=== PATIENT | female | born 1930 | race African-American/Black ===

== ENCOUNTER 2016-10-10 02:48 | Emergency (ER) | payer OTHER, BC ==
--- NOTE | 2016-10-10 02:51 | PDOC ---
History of Present Illness - General Chief Complaint: Nasal Bleeding Stated Complaint: NOSE BLEED X 2 WEEKS 1/2 HOUR TONIGHT Time Seen by Provider: 10/10/16 02:50 - History of Present Illness Initial Comments: 10/10/16 03:32 This 86-year-old woman with a history of hypertension and diverticulosis with bleed presents with epistaxis for the last half hour. Patient has had intermittent nosebleeds for the last 2 weeks. She was seen by ENT on October 02 and had left nostril cauterized. Since then, she has had several brief episodes of epistaxis that have resolved spontaneously. Tonight, patient was awakened about one half hour prior to presentation with brisk bleeding out of her left nostril. She denies trauma/nose blowing or sneezing prior to recurrent nosebleed. Patient has a history of epistaxis that occurred when she was in high school but none since then. Patient takes 81 mg of aspirin daily but is on no other anticoagulation. She had episode of diverticular bleed requiring transfusion several years ago without recurrence. Patient has been taking her antihypertensive medications as prescribed Past History - Past Medical History Allergies/Adverse Reactions: Allergies Allergy/AdvReac Type Severity Reaction Status Date / Time No Known Allergies Allergy Verified 10/10/16 02:53 Home Medications: Ambulatory Orders Hydrochlorothiazide [Hctz -] 25 mg PO DAILY 12/01/13 Nifedipine [Procardia Xl] 90 mg PO DAILY 12/01/13 Aspirin [ASA -] 81 mg PO DAILY 10/10/16 Anemia: No Asthma: No Cancer: No Cardiac Disorders: No CVA: No COPD: No CHF: No Dementia: No Diabetes: No GI Disorders: No Disorders: No HTN: No Hypercholesterolemia: No Liver Disease: No Seizures: No Thyroid Disease: No - Surgical History Abdominal Surgery: No Appendectomy: No Cardiac Surgery: No Cholecystectomy: No Lung Surgery: No Neurologic Surgery: No Orthopedic Surgery: No - Psycho/Social/Smoking Cessation Hx Anxiety: No Suicidal Ideation: No Smoking History: Never smoked Have you smoked in the past 12 months: No Hx Alcohol Use: No Drug/Substance Use Hx: No Substance Use Type: None Hx Substance Use Treatment: No Review of Systems - Review of Systems Able to Perform ROS?: Yes Comments:: 12 point review of systems is negative except for what is noted in the history of present illness *Physical Exam - Physical Exam Comments: GENERAL: Elderly female, alert and oriented 3 in mild distress secondary to left sided epistaxis, holding nose with facial tissue HEAD: Normal with no signs of trauma. EYES: PERRLA, EOMI, sclera anicteric, conjunctiva clear. ENT: Left nostril brisk bleeding; no source of epistaxis identifiable ; right nostrilminimal ooze without evidence of brik bleeding Ears normal, oropharynx clear without exudates, small amount of clots seen in oropharynx. Moist mucous membranes. NECK: Normal range of motion, supple without lymphadenopathy, JVD, or masses. LUNGS: Breath sounds equal, clear to auscultation bilaterally. No wheezes, and no crackles. HEART:Regular rate and rhythm, normal S1 and S2 without murmur, rub or gallop. ABDOMEN:.normal bowel sounds No guarding,tenderness or rebound.No masses No distention. EXTREMITIES: Normal range of motion, no edema. No clubbing or cyanosis. No erythema, or tenderness. NEUROLOGICAL: Cranial nerves II through XII grossly intact. Normal speech. No focal neurological deficits. MUSCULOSKELETAL: Back non-tender to palpation, no CVA tenderness SKIN: Warm, Dry, normal turgor, no rashes or lesions noted. Medical Decision Making - Medical Decision Making 86-year-old woman who is had 2 week history of epistaxis with ENT cauterization of left nostril approximately 1 week ago. Patient presents with spontaneous recurrence of left nostril epistaxis. 4.5 cm anterior "rapid rhino" inflatable nasal pac immersed in sterile water in order to activate lubrication. Device inserted without difficulty into the left nostril and inflated with approximately 5 mL of air. Bleeding from nostril controlled. Device secured to left cheek using tape Patient observed for an additional 20 minutes. There is a minimal amount of oozing from the right nostril but no further bleeding from left nostril. Patient was discharged, comfortable, in no distress. She and her family advised to call ENT group office tomorrow to arrange follow-up within the next 48 hours. Meanwhile, the patient should keep her head elevated as much as possible and avoid blowing her nose as well as application of heat to the area around her nose until seen by the ENT. She should return to the ER if she has any recurrent nosebleed *DC/Admit/Observation/Transfer Diagnosis at time of Disposition: Epistaxis - Discharge Dispostion Disposition: HOME Condition at time of disposition: Stable - Referrals Referrals: Warren Ron [Primary Care Provider] - Jacky Barrios MD [Staff Physician] - - Patient Instructions Printed Discharge Instructions: Nosebleed Additional Instructions: keep head elevated until seen by ENT doctor keep nasal packing in place avoid blowing nose/avoid heat application to face call ENT office in AM and arrange for followup within 2 days return to ER if nosebleed recurs followup with your general doctor within the next 10 days
[2016-10-10 03:01] VITALS: BP 134/78; PULSE 100; TEMP 98.6; BMI 39.3
== END 2016-10-10 03:32 | disposition home or self-care (01) ==
LOC: FER 02:48
PROC: 2Y41X5Z Packing of Nasal Region using Packing Material (ICD-10-PCS; principal; 2016-10-10)
DX: R04.0 Epistaxis (principal); I10 Essential (primary) hypertension; K57.90 Diverticulosis of intestine, part unspecified, without perforation or abscess without bleeding; Z79.82 Long term (current) use of aspirin
CPT/HCPCS: 30901-25; 36415; 80053; 82550; 84484; 85025; 85610; 93005; 93010; 99281-25; 99284-25

== ENCOUNTER 2019-08-05 17:29 | Inpatient (IN) | payer OTHER, BC ==
[2019-08-05 18:59] LABS: BASO % 3.9 % (0-2.0); EOS % 0.7 % (0-4.5); HEMATOCRIT 37.9 % (32.4-45.2); HEMOGLOBIN 12.9 GM/dl (10.7-15.3); MCH 29.9 pg (25.7-33.7); MCHC 33.9 g/dl (32.0-36.0); MEAN CELL VOLUME 88.3 fl (80-96); MONO % 8.2 % (3.8-10.2); NEUT % 67.2 % (42.8-82.8); PLATELET COUNT 429 K/MM3 (134-434); RBC 4.29 M/mm3 (3.60-5.2); RDW 13.4 % (11.6-15.6); WHITE BLOOD COUNT 8.6 K/mm3 (4.0-10.8)
[2019-08-05 19:11] LABS: INR 1.16 (0.82-1.09); PROTHROMBIN TIME (PATIENT) 12.9 SEC (10.2-13.0)
--- NOTE | 2019-08-05 19:57 | PDOC ---
Documentation entered by Gabby Kuo SCRIBE, acting as scribe for Sly Ramos MD. Sly Ramos MD: This documentation has been prepared by the romanibe, Gabby Kuo SCRIBE, under my direction and personally reviewed by me in its entirety. I confirm that the documentation accurately reflects all work, treatment, procedures, and medical decision making performed by me. History of Present Illness - General Chief Complaint: Rectal Bleed Stated Complaint: H/O DIVERTICULOSIS WITH 2 EPISODES OF BLEEDING History Source: Patient Exam Limitations: No Limitations - History of Present Illness Initial Comments: 08/05/19 19:47 Assessment and plan: This is an 89-year-old female with history of bright red blood per rectum secondary to diverticulosis in the past x3. Patient comes in complaining of 2 episodes prior to arrival and one episode in the ED of bright red blood per rectum with a sensation that she had to defecate. Patient denies any bright red blood per rectum between defecations. Patient on my exam did have bright red blood per rectum with rectal exam however the rest of her exam was unremarkable. Patient will be admitted with Dr. Richards consult as she is a patient of Dr. Richards. Dr. Richards was called and case discussed with him. Dr. Richards will see patient in the morning Work-up initiated including CBC, comp, type and screen, PT, PTT, chest x-ray and EKG. Past History - Past Medical History Allergies/Adverse Reactions: Allergies Allergy/AdvReac Type Severity Reaction Status Date / Time No Known Allergies Allergy Verified 08/05/19 17:37 Home Medications: Ambulatory Orders Kranthi/D3/Mag11/Zinc/Java Web Architect/Tyrese/Bor [Caltrate 600+D Plus Tablet] 1 tab PO DAILY 08/05 Gluc Lopez/Chondro Lopez A/Vit C/Mn [Glucosamine-Chondroitin Caps] 1 each PO DAILY Hydrochlorothiazide [Hctz -] 25 mg PO DAILY 08/05/19 Multivit with Calcium,Iron,Min [One Daily Women's] 1 tab PO DAILY 08/05/19 Nifedipine [Nifedipine ER] 60 mg PO HS 08/05/19 Anemia: No Asthma: No Cancer: No Cardiac Disorders: No CVA: No COPD: No CHF: No Dementia: No Diabetes: No GI Disorders: Yes (DIVERTICULOSIS) Disorders: No HTN: Yes Hypercholesterolemia: No Liver Disease: No Seizures: No Thyroid Disease: No Other medical history: OSTEOARTHRITIS,CYSTOCELE, LEFT BREAT NODULE - Surgical History Abdominal Surgery: No Appendectomy: No Cardiac Surgery: No Cholecystectomy: No Lung Surgery: No Neurologic Surgery: No Orthopedic Surgery: No - Psycho Social/Smoking Cessation Hx Smoking History: Never smoked Have you smoked in the past 12 months: No Information on smoking cessation initiated: No Hx Alcohol Use: No Drug/Substance Use Hx: No Substance Use Type: None Hx Substance Use Treatment: No *Physical Exam - Vital Signs Last Vital Signs Temp Pulse Resp BP Pulse Ox 98.6 F 81 16 133/80 97 08/05/19 17:31 08/05/19 19:27 08/05/19 19:27 08/05/19 19:27 08/05/19 19:27 ED Treatment Course - LABORATORY CBC & Chemistry Diagram: 08/05/19 18:40 08/05/19 18:55 - ADDITIONAL ORDERS Additional order review: Laboratory Results 08/05/19 08/05/19 18:40 18:40 PT with INR 12.9 INR 1.16 PTT (Actin FS) 26.6 08/05/19 18:40 RBC 4.29 MCV 88.3 MCHC 33.9 RDW 13.4 MPV 8.0 Neutrophils % 67.2 Lymphocytes % 20.0 Monocytes % 8.2 Eosinophils % 0.7 Basophils % 3.9 H - RADIOLOGY Radiology Studies Ordered: Category Date Time Status CHEST X-RAY PORTABLE* [RAD] Stat Radiology 08/05/19 19:31 Ordered Discharge - Discharge Information Problems reviewed: Yes Clinical Impression/Diagnosis: BRBPR (bright red blood per rectum) Condition: Stable - Admission Yes - Follow up/Referral Referrals: Beatriz Friedman [Primary Care Provider] - - Patient Discharge Instructions - Post Discharge Activity
--- NOTE | 2019-08-05 20:04 | PDOC ---
*Physical Exam - Vital Signs Last Vital Signs Temp Pulse Resp BP Pulse Ox 98.6 F 81 16 133/80 97 08/05/19 17:31 08/05/19 19:27 08/05/19 19:27 08/05/19 19:27 08/05/19 19:27 ED Treatment Course - LABORATORY CBC & Chemistry Diagram: 08/05/19 18:40 08/05/19 18:55 - ADDITIONAL ORDERS Additional order review: Laboratory Results 08/05/19 08/05/19 18:40 18:40 PT with INR 12.9 INR 1.16 PTT (Actin FS) 26.6 08/05/19 18:40 RBC 4.29 MCV 88.3 MCHC 33.9 RDW 13.4 MPV 8.0 Neutrophils % 67.2 Lymphocytes % 20.0 Monocytes % 8.2 Eosinophils % 0.7 Basophils % 3.9 H - RADIOLOGY Radiology Studies Ordered: Category Date Time Status CHEST X-RAY PORTABLE* [RAD] Stat Radiology 08/05/19 19:31 Ordered Discharge - Discharge Information Clinical Impression/Diagnosis: BRBPR (bright red blood per rectum) Condition: Stable - Follow up/Referral Referrals: Beatriz Friedman [Primary Care Provider] - - Patient Discharge Instructions - Post Discharge Activity
[2019-08-05 20:20] LABS: ALBUMIN 4.1 g/dl (3.4-5.0); BILIRUBIN,TOTAL 0.3 mg/dL (0.2-1); BLOOD UREA NITROGEN 17.6 mg/dL (7-18); CALCIUM 9.3 mg/dL (8.5-10.1); CREATININE 0.8 mg/dL (0.55-1.3); POTASSIUM 4.1 mmol/L (3.5-5.1); TOT PROT 8.3 g/dl (6.4-8.2)
[2019-08-05 22:00] VITALS: BMI 34.6
[2019-08-05] MEDS: DEXTROSE 5%-NORMAL SALINE 1,000 ML IV SCH (22:47)
--- NOTE | 2019-08-06 04:12 | HP ---
CHIEF COMPLAINT: Rectal bleeding GI: Dr. Richards HISTORY OF PRESENT ILLNESS: This is an 89 year-old female with a PMH significant for HTN, diverticuosis, and diverticular bleed. Patient presented to the ED for evaluation of two episodes of BRBPR prior to arrival. Patient was at home, felt the need to defecate, and passed blood with clots and some bits of stool. About 40 minutes later she had a similar second episode. She came to the ED, had a third episode , and when admitted to the floor last night had a fourth episode. Patient denies abdominal pain of any kind. She denies fever, sweats, chills, or recent illness. ER course was notable for: (1) p100 (2) (3) Recent Travel: No PAST MEDICAL HISTORY: Hypertension Diverticulosis Diverticular bleeding episodes Epistaxis PAST SURGICAL HISTORY: None reported Social History: lives with and two daughters, independent ADLs Smoking: never Alcohol: no Drugs: no Allergies No Known Allergies Allergy (Verified 08/05/19 17:37) HOME MEDICATIONS: Home Medications Medication Instructions Recorded Kranthi/D3/Mag11/Zinc/Information Services Consultant/Tyrese/Bor 1 tab PO DAILY 08/05/19 [Caltrate 600+D Plus Tablet] Gluc Lopez/Chondro Lopez A/Vit C/Mn 1 each PO DAILY 08/05/19 [Glucosamine-Chondroitin Caps] Hydrochlorothiazide [Hctz -] 25 mg PO DAILY 08/05/19 Multivit with Calcium,Iron,Min 1 tab PO DAILY 08/05/19 [One Daily Women's] Nifedipine [Nifedipine ER] 60 mg PO HS 08/05/19 REVIEW OF SYSTEMS CONSTITUTIONAL: Absent: fever, chills, diaphoresis, generalized weakness, malaise, loss of appetite, weight change HEENT: Absent: rhinorrhea, nasal congestion, throat pain, throat swelling, difficulty swallowing, mouth swelling, ear pain, eye pain, visual changes CARDIOVASCULAR: Absent: chest pain, syncope, palpitations, irregular heart rate, lightheadedness , peripheral edema RESPIRATORY: Absent: cough, shortness of breath, dyspnea with exertion, orthopnea, wheezing, stridor, hemoptysis GASTROINTESTINAL: +bleeding from rectum with clots Absent: abdominal pain, abdominal distension, nausea, vomiting, diarrhea, constipation, melena, hematochezia GENITOURINARY: Absent: dysuria, frequency, urgency, hesitancy, hematuria, flank pain, genital pain MUSCULOSKELETAL: Absent: myalgia, arthralgia, joint swelling, back pain, neck pain SKIN: Absent: rash, itching, pallor HEMATOLOGIC/IMMUNOLOGIC: Absent: easy bleeding, easy bruising, lymphadenopathy, frequent infections ENDOCRINE: Absent: unexplained weight gain, unexplained weight loss, heat intolerance, cold intolerance NEUROLOGIC: Absent: headache, focal weakness or paresthesias, dizziness, unsteady gait, seizure, mental status changes, bladder or bowel incontinence PSYCHIATRIC: Absent: anxiety, depression, suicidal or homicidal ideation, hallucinations. PHYSICAL EXAMINATION Vital Signs - 24 hr 08/05/19 08/05/19 08/05/19 17:31 19:27 21:46 Temperature 98.6 F 98.3 F Pulse Rate 100 H 95 H Pulse Rate [ 81 Left] Respiratory 16 16 18 Rate Blood Pressure 139/80 130/88 Blood Pressure 133/80 [Left] O2 Sat by Pulse 97 97 100 Oximetry (%) 08/06/19 01:49 Temperature 97.8 F Pulse Rate 81 Pulse Rate [ Left] Respiratory 18 Rate Blood Pressure 128/69 Blood Pressure [Left] O2 Sat by Pulse 99 Oximetry (%) GENERAL: Awake, alert, and fully oriented, in no acute distress. HEAD: Normal with no signs of trauma. EYES: Pupils equal, round and reactive to light, extraocular movements intact, sclera anicteric, conjunctiva clear. EARS, NOSE, THROAT: Ears normal, nares patent, oropharynx clear without exudates. Dry mucous membranes. LUNGS: Breath sounds equal, clear to auscultation bilaterally. No wheezes, and no crackles. No accessory muscle use. HEART: Regular rate and rhythm, S1 and S2 ABDOMEN: Soft, nontender, not distended, normoactive bowel sounds, no guarding, no rebound UPPER EXTREMITIES: 2+ pulses, warm, well-perfused. No cyanosis. No clubbing. No peripheral edema. LOWER EXTREMITIES: 2+ pulses, warm, well-perfused. No calf tenderness. 1+ bilateral lower extremity edema NEUROLOGICAL: Cranial nerves II-XII intact. Normal speech. Laboratory Results - last 24 hr 08/05/19 08/05/19 08/05/19 18:40 18:40 18:40 WBC 8.6 RBC 4.29 Hgb 12.9 Hct 37.9 D MCV 88.3 MCH 29.9 MCHC 33.9 RDW 13.4 Plt Count 429 MPV 8.0 Absolute Neuts (auto) 5.8 Neutrophils % 67.2 Lymphocytes % 20.0 Monocytes % 8.2 Eosinophils % 0.7 Basophils % 3.9 H PT with INR 12.9 INR 1.16 PTT (Actin FS) 26.6 Sodium Potassium Chloride Carbon Dioxide Anion Gap BUN Creatinine Est GFR (CKD-EPI)AfAm Est GFR (CKD-EPI)NonAf Random Glucose Calcium Total Bilirubin AST ALT Alkaline Phosphatase Total Protein Albumin Blood Type Antibody Screen 08/05/19 08/05/19 18:40 18:55 WBC RBC Hgb Hct MCV MCH MCHC RDW Plt Count MPV Absolute Neuts (auto) Neutrophils % Lymphocytes % Monocytes % Eosinophils % Basophils % PT with INR INR PTT (Actin FS) Sodium 137 Potassium 4.1 Chloride 103 Carbon Dioxide 26 Anion Gap 8 BUN 17.6 Creatinine 0.8 Est GFR (CKD-EPI)AfAm 76.83 Est GFR (CKD-EPI)NonAf 66.29 Random Glucose 98 Calcium 9.3 Total Bilirubin 0.3 AST 25 ALT 26 Alkaline Phosphatase 83 Total Protein 8.3 H Albumin 4.1 Blood Type B POSITIVE Antibody Screen Negative ASSESSMENT/PLAN: This is an 89 year-old female with a PMH significant for HTN, diverticuosis, and diverticular bleed. Admitted for rectal bleeding. Lower GI bleeding --4-5 episodes of bleeding per rectum with clots and bits of stool --no fever, no leukocytosis, no pain --seen by GI, OK to start clears, defer colonoscopy unless further bleeding Hypertension --hold nifedipine for now due to bleeding issue FEN Fluids: D5NS@75mL/hr Electrolytes: replete as indicated Nutrition: clears DVT prophylaxis: SCDs, oob, ambulation Physical therapy Dispo: continues to require inpatient care. Full code. Visit type - Emergency Visit Emergency Visit: Yes ED Registration Date: 08/05/19 Care time: The patient presented to the Emergency Department on the above date and was hospitalized for further evaluation of their emergent condition. - New Patient This patient is new to me today: Yes Date on this admission: 08/06/19 - Critical Care Critical Care patient: No
[2019-08-06 07:13] LABS: BASO % 0.2 % (0-2.0); EOS % 1.2 % (0-4.5); HEMATOCRIT 30.8 % (32.4-45.2); HEMOGLOBIN 10.5 GM/dl (10.7-15.3); LYMPH % 23.5 % (8-40); MCH 30.3 pg (25.7-33.7); MCHC 34.1 g/dl (32.0-36.0); MEAN PLT VOLUME 7.6 fl (7.5-11.1); MONO % 8.6 % (3.8-10.2); NEUT % 66.5 % (42.8-82.8); PLATELET COUNT 317 K/MM3 (134-434); RBC 3.46 M/mm3 (3.60-5.2); RDW 13.5 % (11.6-15.6); WHITE BLOOD COUNT 7.7 K/mm3 (4.0-10.8)
--- NOTE | 2019-08-06 09:36 | PN ---
Progress Note (short form) - Note Progress Note: Patient seen and labs reviewed along with my "old" office records; consult dictated. Patient is an 89 yo female admitted with acute LGI bleed (BRB/clots RI) without pain or fever. Has hx of prior LGI bleeding from diverticulosis (sigmoid/left-sided). Last colonoscopy approx 5 years ago. Admitted with LGI bleed and Hct drop to 30% Previously with regular BMs and good appetite/stable weight. Not on ASA/a/c. Currently without abdominal c/o and passed only a small amount of dark blood this am (?from earlier bleed?) Suspect diverticular bleed; appears to have stopped/slowed. Would monitor vital signs, CBC and begin on clear liquid diet (nothing red or purple) In view of age and prior history, would defer colonoscopy unless further bleeding. Will follow
[2019-08-06] MEDS ORDERED: PANTOPRAZOLE SODIUM 40 MG VIAL IVPUSH SCH (10:00)
[2019-08-06 10:06] LABS: ALBUMIN 3.3 g/dl (3.4-5.0); BILIRUBIN,TOTAL 0.6 mg/dL (0.2-1); BLOOD UREA NITROGEN 15.4 mg/dL (7-18); CREATININE 0.7 mg/dL (0.55-1.3); POTASSIUM 3.5 mmol/L (3.5-5.1); TOT PROT 6.6 g/dl (6.4-8.2)
--- NOTE | 2019-08-06 11:23 | EKG ---
Test Reason : Blood Pressure : / mmHG Vent. Rate : 081 BPM Atrial Rate : 081 BPM P-R Int : 172 ms QRS Dur : 112 ms QT Int : 392 ms P-R-T Axes : 056 -67 029 degrees QTc Int : 455 ms SINUS RHYTHM WITH OCCASIONAL PREMATURE VENTRICULAR COMPLEXES POSSIBLE LEFT ATRIAL ENLARGEMENT RIGHT BUNDLE BRANCH BLOCK LEFT ANTERIOR FASCICULAR BLOCK BIFASCICULAR BLOCK ABNORMAL ECG WHEN COMPARED WITH ECG OF 10-OCT-2016 23:55, PREMATURE VENTRICULAR COMPLEXES ARE NOW PRESENT Confirmed by Jayjay Bates MD ([id number]) on 08/06/2019 11:22:57 AM Referred By: DR SERRANO Confirmed By:Jayjay Bates MD
[2019-08-06] MEDS ORDERED: SODIUM CHLORIDE 1,000 ML IV STA ×2 (15:23)
--- NOTE | 2019-08-06 15:55 | RAPID ---
Physical Examination Vital Signs: Summoned to patient's room by RN. Patient sitting on toilet, in no apparent distress. Passing dark blood per rectum into toilet. Had few moments before filled diaper with dark red blood with large amount of clot. Vitals BP 166/70 p97 SpO2 97% room air T 97.8 RR 18 Physical exam General/Neuro: A&Ox3, in no acute distress. Skin: warm, dry CV: S1, S2 Abd: soft, not tender Assessment/Plan Active lower GI bleeding --two IV access --NS x 2L bolus now --type and screen done --cbc, cmp, Mg, lactic acid stat --ordered 2U PRBC --CTA w and w/o IV contrast arterial phase then venous phase; discussed with radiology --discussed with Dr. Orellana, accepted to ICU --Dr. Ortiz on surgery consult --Dr. Richards on GI consult, he will continue to follow the patient in ICU Critical Care Total Critical Care Time (in minutes): 60 Critical Care Statement: The care of this patient involved high complexity decision making to prevent further life threatening deterioration of the patient 's condition and/or to evaluate & treat vital organ system(s) failure or risk of failure.
[2019-08-06 16:06] LABS: BASO % 0.3 % (0-2.0); EOS % 0.7 % (0-4.5); HEMATOCRIT 30.4 % (32.4-45.2); HEMOGLOBIN 10.3 GM/dl (10.7-15.3); LYMPH % 22.7 % (8-40); MCH 30.2 pg (25.7-33.7); MEAN CELL VOLUME 88.9 fl (80-96); MEAN PLT VOLUME 7.6 fl (7.5-11.1); MONO % 8.9 % (3.8-10.2); NEUT % 67.4 % (42.8-82.8); PLATELET COUNT 320 K/MM3 (134-434); RBC 3.42 M/mm3 (3.60-5.2); RDW 13.4 % (11.6-15.6); WHITE BLOOD COUNT 8.5 K/mm3 (4.0-10.8)
[2019-08-06 16:10] LABS: ALBUMIN 3.5 g/dl (3.4-5.0); BILIRUBIN,TOTAL 0.8 mg/dl (0.2-1); CALCIUM 8.2 mg/dl (8.5-10); CREATININE 0.6 mg/dl (0.55-1.3); MAGNESIUM 1.6 mg/dL (1.8-2.4)
[2019-08-06] MEDS ORDERED: POTASSIUM CHLORIDE TABS 20 MEQ TABLET.ER (FP) PO STA (16:33)
[2019-08-06] MEDS ORDERED: MAGNESIUM SULF 50% (8.12 MEQ/2 ML-1 GM VIAL) IVPB ONE (16:34)
--- NOTE | 2019-08-06 17:39 | CONS ---
DATE OF CONSULTATION: 08/06/2019 Asked to evaluate this 89-year-old female admitted with lower GI bleeding. The patient is an 89-year-old female with a history of diverticular disease in the past including bleeding. The patient was last seen by me many years ago in the office. She had a colonoscopy under my care 2012 with some diverticulosis noted in the left and sigmoid portions of the colon and evidence of bleeding from a diverticulum. She also had a small benign polyp which was removed at the time. The patient has a history of hypertension as well and family history notable for her brother having had colon cancer at age 57 and several 2nd-degree relatives also having had colon cancer. The patient had been having regular bowel movements daily up until this episode. She has not seen any blood in the stool nor any recent change in her bowel habits. Her appetite and weight have remained stable. The patient had been on aspirin at the time of her prior bleed but is currently not on any blood thinners. PHYSICAL EXAMINATION: General: She is a well-developed, overweight female with pink conjunctiva, soft abdomen, normoactive bowel sounds, and no tenderness. There is gross blood detected in the emergency room. Her blood counts on admission included a hemoglobin of 12.9, hematocrit of 37.9 with normal red cell indices. Most recent hemoglobin is 10.5 with hematocrit of 30.8. Her INR was 1.16 and her chemistries are unremarkable with a BUN of 17 and a creatinine of 0.8. Patient most likely with acute lower GI bleed due to a diverticular source. At the present time she appears stable with her blood count likely dropping due to a combination of the recent bleed and hydration. She has no symptoms at the present time, and in view of her age wishes to defer a colonoscopy if possible. I have discussed with patient the options if she re-bleeds including colonoscopy or CT angiogram, but at the present time will monitor closely. If remains stable can start on clear liquids with followup as needed. GREG DUNLAP M.D. [id number]
--- NOTE | 2019-08-06 21:41 | CONSULT ---
Consultation: REQUESTING PROVIDER: Shy Martinez NP CONSULT REQUEST: We have been asked to medically evaluate this patient for GI bleed. HISTORY OF PRESENT ILLNESS: 89F w/ pmhx of HTN, OA, diverticulosis with bleeding in the past, osteopenia presents in the ICU for GI bleed. Pt was originally admitted at [place] after having 2 episodes of dark red stool. Upon admission, patient remained hemodynamically stable. Per EMR, rapid response was called earlier today as pt was found to have an episode of dark red stool with large clot in her diaper. Due to concern of ongoing GI bleed, pt was transferred from [facility] to [facility] for ICU monitoring. Of note, pt has had a history of diverticular bleeding in the past, last known episode prior to recent events was in 2013. Last colonoscopy was also done in 2013 per patient. States she follows with Dr. Richards (GI) as an outpatient. Denies AC or NSAID use. Upon arrival to the unit, pt was found to be in no acute distress. She denied any more bloody bowel movements since her last episode prior to the transfer. During the episode, she denied headaches, dizziness, vision changes, chest pain , shortness of breath, nausea/vomiting. REVIEW OF SYSTEMS: CONSTITUTIONAL: Absent: fever, chills, diaphoresis, generalized weakness, malaise, loss of appetite, weight change HEENT: Absent: rhinorrhea, nasal congestion, throat pain, throat swelling, difficulty swallowing, mouth swelling, ear pain, eye pain, visual changes CARDIOVASCULAR: Absent: chest pain, syncope, palpitations, irregular heart rate, lightheadedness , peripheral edema RESPIRATORY: Absent: cough, shortness of breath, dyspnea with exertion, orthopnea, wheezing, stridor, hemoptysis GASTROINTESTINAL: mild abdominal bloating, dark bloody stool Absent: abdominal pain, abdominal distension, nausea, vomiting, diarrhea, constipation, melena, hematochezia GENITOURINARY: Absent: dysuria, frequency, urgency, hesitancy, hematuria, flank pain, genital pain MUSCULOSKELETAL: Absent: myalgia, arthralgia, joint swelling, back pain, neck pain SKIN: Absent: rash, itching, pallor HEMATOLOGIC/IMMUNOLOGIC: Absent: easy bleeding, easy bruising, lymphadenopathy, frequent infections ENDOCRINE: Absent: unexplained weight gain, unexplained weight loss, heat intolerance, cold intolerance NEUROLOGIC: Absent: headache, focal weakness or paresthesias, dizziness, unsteady gait, seizure, mental status changes, bladder or bowel incontinence PHYSICAL EXAMINATION Vital Signs - 24 hr 08/05/19 08/06/19 08/06/19 21:46 01:49 05:00 Temperature 98.3 F 97.8 F 98.2 F Pulse Rate 95 H 81 80 Respiratory 18 18 18 Rate Blood Pressure 130/88 128/69 142/77 O2 Sat by Pulse 100 99 Oximetry (%) 08/06/19 08/06/19 08/06/19 08:02 09:45 13:00 Temperature 98.2 F 97.8 F Pulse Rate 108 H 100 H Respiratory 19 18 Rate Blood Pressure 131/68 130/80 O2 Sat by Pulse 96 97 96 Oximetry (%) 08/06/19 08/06/19 08/06/19 15:30 16:33 18:00 Temperature 97.8 F 97.8 F 97.8 F Pulse Rate 97 H 101 H 100 H Respiratory 18 18 18 Rate Blood Pressure 133/70 128/67 130/68 O2 Sat by Pulse Oximetry (%) 08/06/19 18:37 Temperature Pulse Rate Respiratory 18 Rate Blood Pressure O2 Sat by Pulse Oximetry (%) GENERAL: AAOx3. Pleasant, well-appearing elderly female. NAD. HEENT: AT/NC. EOMI. MMM. Facial symmetry noted. NECK: Normal range of motion, supple without lymphadenopathy, JVD, or masses. LUNGS: CTA B/L. No wheezes or rales noted. Symmetric chest rise. HEART: RRR. Normal S1, S2. +3/5 systolic murmur LUSB. ABDOMEN: Obese. Soft, NT/ND. Normoactive bowel sounds. No rebound tenderness or guarding. No masses noted. No visible stool noted in diaper. MUSCULOSKELETAL: Normal range of motion at all joints. Moves all extremities. EXTREMITIES: No peripheral edema noted. 2+ dorsalis pedis and radial pulses. NEUROLOGICAL: Cranial nerves II-XII intact. Normal speech. PSYCHIATRIC: Cooperative. Good eye contact. Appropriate mood and affect. SKIN: Warm, dry, normal turgor, no rashes or lesions noted. CBCD WBC 8.5 K/mm3 (4.0-10.8) 08/06/19 15:40 RBC 3.42 M/mm3 (3.60-5.2) L 08/06/19 15:40 Hgb 10.3 GM/dl (10.7-15.3) L 08/06/19 15:40 Hct 30.4 % (32.4-45.2) L 08/06/19 15:40 MCV 88.9 fl (80-96) 08/06/19 15:40 MCHC 34.0 g/dl (32.0-36.0) 08/06/19 15:40 RDW 13.4 % (11.6-15.6) 08/06/19 15:40 Plt Count 320 K/MM3 (134-434) 08/06/19 15:40 MPV 7.6 fl (7.5-11.1) 08/06/19 15:40 CMP Sodium 135 mmol/L (136-145) L 08/06/19 15:40 Potassium 3.0 mmol/L (3.5-5.1) L 08/06/19 15:40 Chloride 104 mmol/L (98-107) 08/06/19 15:40 Carbon Dioxide 22 mmol/L (21-32) 08/06/19 15:40 Anion Gap 9 MMOL/L (8-16) 08/06/19 15:40 BUN 14.0 mg/dl (7-18) 08/06/19 15:40 Creatinine 0.6 mg/dl (0.55-1.3) 08/06/19 15:40 Calcium 8.2 mg/dl (8.5-10) L 08/06/19 15:40 Total Bilirubin 0.8 mg/dl (0.2-1) 08/06/19 15:40 AST 24 U/L (15-37) 08/06/19 15:40 ALT 15 U/L (13-61) 08/06/19 15:40 Alkaline Phosphatase 48 U/L (45-117) 08/06/19 15:40 Total Protein 6.0 g/dl (6.4-8.2) L 08/06/19 15:40 Albumin 3.5 g/dl (3.4-5.0) 08/06/19 15:40 Active Medications Chlorhexidine Gluconate (Hibiclens For Decolonization -) 1 applic TP HS [facility] Dextrose/Sodium Chloride (D5-Ns -) 1,000 mls @ 75 mls/hr IV ASDIR [facility] Last Admin: 08/05/19 22:47 Dose: 75 mls/hr Mupirocin (Bactroban Ointment (For Decolonization) -) 1 applic NS BID [facility] Stop: 08/11/19 21:59 Pantoprazole Sodium (Protonix Iv) 40 mg IVPUSH DAILY [facility] Last Admin: 08/06/19 10:00 Dose: 40 mg ASSESSMENT/PLAN: 89F w/ pmhx of HTN, OA, diverticulosis with bleeding in the past, osteopenia presents in the ICU for GI bleed. Neuro -AAOx3. Mentating well. Stable with no acute issues. GI Acute Diverticular Bleed -Stable. Cont to monitor for BM. No other symptoms. -Hgb stable 10.5 --> 10.3. Recheck CBC in AM -CTAP done; pending final read -GI consulted (Dr. Richards) -Surg consulted (Dr. Ortiz) -NPO -Maintain Hgb >7, transfuse PRN -Protonix 40 IVP -IVf CV Hx of HTN -Hemodynamically stable. Hold anti-hypertensives for now. Nephro Hypokalemia Hypomagnesemia -K+ 3.0 today; K-Dur 60 mEq PO given -Mg 1.6; Mag Sulf 2gm IVPB given -repletes lytes PRN and recheck BMP in AM Prophylaxis DVT: SCDs GI: Protonix 40 IVP FEN -IVf -recheck lytes in AM (K+, Mg) -NPO Dispo: We will continue to follow the patient. Thank you for this consultative opportunity. Visit type - Emergency Visit Emergency Visit: Yes ED Registration Date: 08/05/19 Care time: The patient presented to the Emergency Department on the above date and was hospitalized for further evaluation of their emergent condition. - New Patient This patient is new to me today: Yes Date on this admission: 08/06/19 - Critical Care Critical Care patient: Yes Total Critical Care Time (in minutes): 36 Critical Care Statement: The care of this patient involved high complexity decision making to prevent further life threatening deterioration of the patient 's condition and/or to evaluate & treat vital organ system(s) failure or risk of failure. ATTENDING PHYSICIAN STATEMENT I saw and evaluated the patient. I reviewed the resident's note and discussed the case with the resident. I agree with the resident's findings and plan as documented. SUBJECTIVE: OBJECTIVE: ASSESSMENT AND PLAN:
[2019-08-06] MEDS ORDERED: CHLORHEXIDINE GLUCONATE 4% CLEANSER FOR DECOLONIZATION TP SCH (22:00)
[2019-08-06] MEDS: MUPIROCIN 2% TOPICAL OINTMENT FOR DECOLONIZATION NS SCH (22:08)
[2019-08-06] MEDS: DEXTROSE 5%-NORMAL SALINE 1,000 ML IV SCH (22:08)
[2019-08-07 06:59] LABS: PHOSPHOROUS 3.3 mg/dL (2.5-4.9)
[2019-08-07 07:42] LABS: INR 1.12 (0.83-1.09); PROTHROMBIN TIME (PATIENT) 13.2 SEC (9.7-13.0)
[2019-08-07 07:46] LABS: HEMATOCRIT 26.3 % (32.4-45.2); MCH 30.1 pg (25.7-33.7); MEAN CELL VOLUME 88.5 fl (80-96); MEAN PLT VOLUME 7.8 fl (7.5-11.1); PLATELET COUNT 266 K/MM3 (134-434); RBC 2.98 M/mm3 (3.60-5.2); RDW 14.3 % (11.6-15.6); WHITE BLOOD COUNT 5.9 K/mm3 (4.0-10.0)
--- NOTE | 2019-08-07 08:28 | PN ---
Progress Note (short form) - Note Progress Note: Patient with further LGI bleeding last pm; transferred to [facility]-ICU for monitoring. Had CTA- results pending Hct 26% VSS No further gross bleeding overnight and patient denies abdominal pain or cramps. Abdomen soft +BS nontender no mass Discussed with ICU team; suggest - close monitoring of CBC (may need PRBC txn if further drop in Hct) if further bleeding, may need IR - embolization and surgical evaluation if no further bleeding, will prep/arrange for colonoscopy tomorrow (also with + FH colon cancer - last colonoscopy 6 years ago) to begin on clear liquid diet and follow await reading of CTA
--- NOTE | 2019-08-07 08:54 | PN ---
Progress Note, Physician Chief Complaint: No further rectal bleeding. Awaiting colonscopy. History of Present Illness: This is an 89 year-old female with a PMH significant for HTN, diverticuosis, and diverticular bleed. Transfered from [facility] for further managament of rectal bleeding. - Current Medication List Current Medications: Active Medications Chlorhexidine Gluconate (Hibiclens For Decolonization -) 1 applic TP HS [facility] Last Admin: 08/06/19 22:08 Dose: 1 applic Dextrose/Sodium Chloride (D5-Ns -) 1,000 mls @ 75 mls/hr IV ASDIR [facility] Mupirocin (Bactroban Ointment (For Decolonization) -) 1 applic NS BID [facility] Stop: 08/11/19 21:59 Last Admin: 08/06/19 22:08 Dose: 1 applic Pantoprazole Sodium (Protonix Iv) 40 mg IVPUSH DAILY [facility] Polyethylene Glycol/Electrolytes (Nulytely) 4,000 ml PO ONCE ONE Stop: 08/07/19 15:01 - Objective Vital Signs: Vital Signs Temperature 98.1 F 08/07/19 08:00 Pulse Rate 95 H 08/07/19 08:00 Respiratory Rate 16 08/07/19 08:00 Blood Pressure 153/79 08/07/19 08:00 O2 Sat by Pulse Oximetry (%) 100 08/06/19 21:00 Constitutional: Yes: Well Nourished, No Distress, Calm Eyes: Yes: WNL, Conjunctiva Clear HENT: Yes: WNL, Atraumatic, Normocephalic Neck: Yes: WNL, Supple, Trachea Midline Cardiovascular: Yes: WNL, Regular Rate and Rhythm Respiratory: Yes: WNL, Regular, CTA Bilaterally Gastrointestinal: Yes: WNL, Normal Bowel Sounds, Rectal Bleeding (no episodes today) ...Rectal Exam: Yes: Guaiac Positive Genitourinary: Yes: WNL Breast(s): Yes: WNL Musculoskeletal: Yes: WNL Extremities: Yes: WNL Edema: Yes Edema: LLE: 1+, RLE: 1+ Peripheral Pulses WNL: Yes Peripheral Pulses: Left Radial: 2+, Right Radial: 2+, Left Doralis Pedis: 2+, Right Dorsalis Pedis: 2+, Left Femoral: 2+, Right Femoral: 2+ Integumentary: Yes: WNL Neurological: Yes: WNL, Alert, Oriented ...Motor Strength: WNL Psychiatric: Yes: WNL Labs: CBC, BMP 08/07/19 05:15 INR, PTT INR 1.12 (0.83-1.09) H 08/07/19 05:15 - ....Imaging Cat Scan: Report Reviewed (CTA: several divertula along descending and sigmoid colom. No active bleeding) Problem List - Problems (1) HTN (hypertension) Assessment/Plan: nortensive hold nifidipine Code(s): I10 - ESSENTIAL (PRIMARY) HYPERTENSION (2) Diverticulitis Assessment/Plan: 3 diverticular bleeds in the past no active bleeding today seen by surgery and GI colonscopy pending for tomorrow Code(s): K57.92 - DVTRCLI OF INTEST, PART UNSP, W/O PERF OR ABSCESS W/O BLEED (3) Diverticulitis of intestine with bleeding Assessment/Plan: GI planning for colonoscopy tomorrow with bowel prep today Code(s): K57.93 - DVTRCLI OF INTEST, PART UNSP, W/O PERF OR ABSCESS W BLEEDING (4) Prophylactic measure Assessment/Plan: FEN Fluids: IVF @ 75cc/he. adequate PO intake Electrolytes: monitor & replete as needed Nutrition: clear diet DVT scds no chemical AC given bleeidng Dispo Maintain as inpatient-ok to transfer to [facility] surg bed full code discharge planning Code(s): Z29.9 - ENCOUNTER FOR PROPHYLACTIC MEASURES, UNSPECIFIED (5) BRBPR (bright red blood per rectum) Assessment/Plan: no further episodes today Code(s): K62.5 - HEMORRHAGE OF ANUS AND RECTUM Visit type - Emergency Visit Emergency Visit: Yes ED Registration Date: 08/05/19 Care time: The patient presented to the Emergency Department on the above date and was hospitalized for further evaluation of their emergent condition. - New Patient This patient is new to me today: Yes Date on this admission: 08/07/19 - Critical Care Critical Care patient: No - Discharge Referral Referred to [facility] No
--- NOTE | 2019-08-07 08:57 | PN ---
Progress Note (short form) - Note Progress Note: pt without any further bleeding. Vital Signs Period Temp Pulse Resp BP Sys/Rolon Pulse Ox Last 24 Hr 97.8 F-98.4 F 86-108 15-22 113-153/63-80 96-100 GEN: A&0x3, NAD ABD: soft, non-distended, non-tender CBC, BMP 08/07/19 05:15 Laboratory Tests 08/06/19 15:40 WBC 8.5 Hgb 10.3 L Hct 30.4 L Plt Count 320 CTA: no evidence of extravasation of contrast. diverticula of descending and sigmoid colon. A/p: 89 yo female with GI bleed. NPO, IVF Monitor H&H, transfuse as per ICU team GI planning for colonoscopy tomorrow with bowel prep today D/w. Dr Ortiz
[2019-08-07 09:24] LABS: BLOOD UREA NITROGEN 9.6 mg/dL (7-18); CREATININE 0.6 mg/dL (0.55-1.3); MAGNESIUM 2.3 mg/dL (1.8-2.4); POTASSIUM 3.9 mmol/L (3.5-5.1)
[2019-08-07] MEDS: DEXTROSE 5%-NORMAL SALINE 1,000 ML IV SCH ×2 (09:47→17:15)
[2019-08-07] MEDS: MUPIROCIN 2% TOPICAL OINTMENT FOR DECOLONIZATION NS SCH (09:58)
[2019-08-07] MEDS: PANTOPRAZOLE SODIUM 40 MG VIAL IVPUSH SCH (09:58)
--- NOTE | 2019-08-07 12:08 | PN ---
Teaching Attending Note Name of Resident: Gretchen Sanchez ATTENDING PHYSICIAN STATEMENT I saw and evaluated the patient. I reviewed the resident's note and discussed the case with the resident. I agree with the resident's findings and plan as documented. SUBJECTIVE: Patient seen and examined in the ICU. Awaeke and alert. Denies CP or SOB. No occult bleeding overnight. Intake & Output 08/04/19 08/05/19 08/06/19 08/07/19 23:59 23:59 23:59 23:59 Intake Total 3000 940 Output Total 400 Balance 2600 940 Weight 208 lb 2 oz Last Vital Signs Temp Pulse Resp BP Pulse Ox 97.5 F L 95 H 12 152/83 98 08/07/19 10:00 08/07/19 10:00 08/07/19 10:00 08/07/19 10:00 08/07/19 08:50 Active Medications Chlorhexidine Gluconate (Hibiclens For Decolonization -) 1 applic TP HS [facility] Last Admin: 08/06/19 22:08 Dose: 1 applic Dextrose/Sodium Chloride (D5-Ns -) 1,000 mls @ 75 mls/hr IV ASDIR [facility] Last Admin: 08/07/19 09:47 Dose: 75 mls/hr Mupirocin (Bactroban Ointment (For Decolonization) -) 1 applic NS BID [facility] Stop: 08/11/19 21:59 Last Admin: 08/07/19 09:58 Dose: 1 applic Pantoprazole Sodium (Protonix Iv) 40 mg IVPUSH DAILY [facility] Last Admin: 08/07/19 09:58 Dose: 40 mg Polyethylene Glycol/Electrolytes (Golytely Solution -) 4,000 ml PO ONCE ONE Stop: 08/07/19 15:01 GENERAL: AAOx3. NAD. HEENT: AT/NC. EOMI. MMM. Facial symmetry noted. NECK: Normal range of motion, supple without lymphadenopathy, JVD, or masses. LUNGS: CTA B/L. No wheezes or rales noted. Symmetric chest rise. HEART: RRR. Normal S1, S2. +3/5 systolic murmur LUSB. ABDOMEN: Obese. Soft, NT/ND. Normoactive bowel sounds. No rebound tenderness or guarding. No masses noted. No visible stool noted in diaper. MUSCULOSKELETAL: Normal range of motion at all joints. Moves all extremities. EXTREMITIES: No peripheral edema noted. 2+ dorsalis pedis and radial pulses. NEUROLOGICAL: Non-focal PSYCHIATRIC: Cooperative. Good eye contact. Appropriate mood and affect. SKIN: Warm, dry, normal turgor, no rashes or lesions noted. Laboratory Results - last 24 hr 08/05/19 08/06/19 08/06/19 18:40 15:40 15:40 WBC 8.5 RBC 3.42 L Hgb 10.3 L Hct 30.4 L MCV 88.9 MCH 30.2 MCHC 34.0 RDW 13.4 Plt Count 320 MPV 7.6 Absolute Neuts (auto) 5.7 Neutrophils % 67.4 Lymphocytes % 22.7 Monocytes % 8.9 Eosinophils % 0.7 Basophils % 0.3 PT with INR INR PTT (Actin FS) Sodium 135 L Potassium 3.0 L Chloride 104 Carbon Dioxide 22 Anion Gap 9 BUN 14.0 Creatinine 0.6 Est GFR (CKD-EPI)AfAm 94.99 Est GFR (CKD-EPI)NonAf 81.95 Random Glucose 124 H Lactic Acid Calcium 8.2 L Phosphorus Magnesium 1.6 L Total Bilirubin 0.8 AST 24 ALT 15 Alkaline Phosphatase 48 Total Protein 6.0 L Albumin 3.5 Blood Type B POSITIVE Antibody Screen Negative Crossmatch See Detail 08/06/19 08/06/19 08/07/19 15:40 15:40 05:15 WBC 5.9 RBC 2.98 L Hgb 9.0 L Hct 26.3 L MCV 88.5 MCH 30.1 MCHC 34.0 RDW 14.3 Plt Count 266 MPV 7.8 Absolute Neuts (auto) Neutrophils % Lymphocytes % Monocytes % Eosinophils % Basophils % PT with INR INR PTT (Actin FS) 25.5 Sodium Potassium Chloride Carbon Dioxide Anion Gap BUN Creatinine Est GFR (CKD-EPI)AfAm Est GFR (CKD-EPI)NonAf Random Glucose Lactic Acid 2.1 H Calcium Phosphorus Magnesium Total Bilirubin AST ALT Alkaline Phosphatase Total Protein Albumin Blood Type Antibody Screen Crossmatch 08/07/19 08/07/19 05:15 05:15 WBC RBC Hgb Hct MCV MCH MCHC RDW Plt Count MPV Absolute Neuts (auto) Neutrophils % Lymphocytes % Monocytes % Eosinophils % Basophils % PT with INR 13.20 H INR 1.12 H PTT (Actin FS) Sodium 144 Potassium 3.9 Chloride 114 H Carbon Dioxide 25 Anion Gap 5 L BUN 9.6 Creatinine 0.6 Est GFR (CKD-EPI)AfAm 94.99 Est GFR (CKD-EPI)NonAf 81.95 Random Glucose 100 Lactic Acid Calcium 8.0 L Phosphorus 3.3 Magnesium 2.3 Total Bilirubin AST ALT Alkaline Phosphatase Total Protein Albumin Blood Type Antibody Screen Crossmatch ASSESSMENT/PLAN: Suspected Diverticular bleed HTN OA History of diverticular bleeding in the past x 3 Normal transfusion thresholds O2 as needed Follow CBC Mechanical VTE prophylaxis PPI noted Can monitor on the floor Dr Ferrari
--- NOTE | 2019-08-07 13:02 | PN ---
Physical Exam: SUBJECTIVE: Patient seen and examined. No acute event overnight. pt denied any bloody bowel movement since the one on initial presentation to ICU. OBJECTIVE: Vital Signs Period Temp Pulse Resp BP Sys/Rolon Pulse Ox Last 24 Hr 97.5 F-98.4 F 86-104 12-24 113-153/61-83 98-100 GENERAL: The patient is awake, alert, and fully oriented, in no acute distress. HEAD: Normal with no signs of trauma. EYES: sclera anicteric, conjunctiva clear. No ptosis. ENT: oropharynx clear without exudates, moist mucous membranes. NECK: Trachea midline, full range of motion, supple. LUNGS: Breath sounds equal, clear to auscultation bilaterally, no wheezes, no crackles, no accessory muscle use. HEART: Regular rate and rhythm, S1, S2 without murmur, rub or gallop. ABDOMEN: Soft, nontender, obese, normoactive bowel sounds, no guarding, no rebound, no hepatosplenomegaly, no masses. EXTREMITIES: 2+ pulses, warm, well-perfused, no edema. PSYCH: Normal mood, normal affect. SKIN: Warm, dry, normal turgor, no rashes or lesions noted Laboratory Results - last 24 hr 08/05/19 08/06/19 08/06/19 18:40 15:40 15:40 WBC 8.5 RBC 3.42 L Hgb 10.3 L Hct 30.4 L MCV 88.9 MCH 30.2 MCHC 34.0 RDW 13.4 Plt Count 320 MPV 7.6 Absolute Neuts (auto) 5.7 Neutrophils % 67.4 Lymphocytes % 22.7 Monocytes % 8.9 Eosinophils % 0.7 Basophils % 0.3 PT with INR INR PTT (Actin FS) Sodium 135 L Potassium 3.0 L Chloride 104 Carbon Dioxide 22 Anion Gap 9 BUN 14.0 Creatinine 0.6 Est GFR (CKD-EPI)AfAm 94.99 Est GFR (CKD-EPI)NonAf 81.95 Random Glucose 124 H Lactic Acid Calcium 8.2 L Phosphorus Magnesium 1.6 L Total Bilirubin 0.8 AST 24 ALT 15 Alkaline Phosphatase 48 Total Protein 6.0 L Albumin 3.5 Blood Type B POSITIVE Antibody Screen Negative Crossmatch See Detail 08/06/19 08/06/19 08/07/19 15:40 15:40 05:15 WBC 5.9 RBC 2.98 L Hgb 9.0 L Hct 26.3 L MCV 88.5 MCH 30.1 MCHC 34.0 RDW 14.3 Plt Count 266 MPV 7.8 Absolute Neuts (auto) Neutrophils % Lymphocytes % Monocytes % Eosinophils % Basophils % PT with INR INR PTT (Actin FS) 25.5 Sodium Potassium Chloride Carbon Dioxide Anion Gap BUN Creatinine Est GFR (CKD-EPI)AfAm Est GFR (CKD-EPI)NonAf Random Glucose Lactic Acid 2.1 H Calcium Phosphorus Magnesium Total Bilirubin AST ALT Alkaline Phosphatase Total Protein Albumin Blood Type Antibody Screen Crossmatch 08/07/19 08/07/19 05:15 05:15 WBC RBC Hgb Hct MCV MCH MCHC RDW Plt Count MPV Absolute Neuts (auto) Neutrophils % Lymphocytes % Monocytes % Eosinophils % Basophils % PT with INR 13.20 H INR 1.12 H PTT (Actin FS) Sodium 144 Potassium 3.9 Chloride 114 H Carbon Dioxide 25 Anion Gap 5 L BUN 9.6 Creatinine 0.6 Est GFR (CKD-EPI)AfAm 94.99 Est GFR (CKD-EPI)NonAf 81.95 Random Glucose 100 Lactic Acid Calcium 8.0 L Phosphorus 3.3 Magnesium 2.3 Total Bilirubin AST ALT Alkaline Phosphatase Total Protein Albumin Blood Type Antibody Screen Crossmatch Active Medications Generic Name Dose Route Start Last Admin Trade Name Freq PRN Reason Stop Dose Admin Chlorhexidine Gluconate 1 applic 08/06/19 22:00 08/06/19 22:08 Hibiclens For Decolonization - TP 1 applic HS [facility] Administration Dextrose/Sodium Chloride 1,000 mls @ 75 mls/hr 08/07/19 02:50 08/07/19 09:47 D5-Ns - IV 75 mls/hr ASDIR [facility] Administration Mupirocin 1 applic 08/06/19 22:00 08/07/19 09:58 Bactroban Ointment (For Decolonization) - NS 08/11/19 21:59 1 applic BID [facility] Administration Pantoprazole Sodium 40 mg 08/07/19 10:00 08/07/19 09:58 Protonix Iv IVPUSH 40 mg DAILY [facility] Administration Polyethylene Glycol/Electrolytes 4,000 ml 08/07/19 15:00 Golytely Solution - PO 08/07/19 15:01 ONCE ONE ASSESSMENT/PLAN: 89F w/ pmhx of HTN, OA, diverticulosis with bleeding in the past, osteopenia presents in the ICU for GI bleed. Neuro -AAOx3. Mentating well. Stable with no acute issues. GI Acute Diverticular Bleed. No bloody bowel movement this morning - H/H dropped to 9/26.3 - Cont to monitor for BM. No other symptoms. -CTAP :No definite contrast extravasation is visualized to identify a specific bleeding site. Several diverticula along the length of the descending and sigmoid segments of the colon demonstrates slightly increased intraluminal density possibly representing blood. Mild dilatation of the length of the main pancreatic duct is seen. No gross mass lesion is identified on CT. MRI/MRCP evaluation may be considered versus 2 month follow-up CT. The urinary bladder volume at the time of examination is approximately 600 mL. There is minimal to mild bilateral hydroureteronephrosis possibly secondary to urinary bladder distention. Possible cholelithiasis versus focal gallbladder wall calcification -GI (Dr. Richards) : close monitoring of CBC (may need PRBC txn if further drop in Hct) if further bleeding, may need IR - embolization and surgical evaluation if no further bleeding, will prep/arrange for colonoscopy tomorrow (also with + FH colon cancer - last colonoscopy 6 years ago) to begin on clear liquid diet and follow -Surg consulted (Dr. Ortiz) : NPO, IVF, colonoscopy t/m if no bleeding and stable -NPO -Maintain Hgb >7, transfuse PRN -Protonix 40 IVP -D5NS @75 -currently receiving bowel prep CV Hx of HTN -Hemodynamically stable. Hold anti-hypertensives for now. Nephro hypokalemic and hypomagnesemia. -s/p repletion of lytes -currently k 3.9, mag 2.3 Prophylaxis DVT: SCDs GI: Protonix 40 IVP FEN -IVf -recheck lytes in AM (K+, Mg) -NPO Dispo: pending transfer to floors Visit type - Emergency Visit Emergency Visit: Yes ED Registration Date: 08/05/19 Care time: The patient presented to the Emergency Department on the above date and was hospitalized for further evaluation of their emergent condition. - New Patient This patient is new to me today: No - Critical Care Critical Care patient: Yes Total Critical Care Time (in minutes): 36 Critical Care Statement: The care of this patient involved high complexity decision making to prevent further life threatening deterioration of the patient 's condition and/or to evaluate & treat vital organ system(s) failure or risk of failure. ATTENDING PHYSICIAN STATEMENT I saw and evaluated the patient. I reviewed the resident's note and discussed the case with the resident. I agree with the resident's findings and plan as documented. SUBJECTIVE: OBJECTIVE: ASSESSMENT AND PLAN:
[2019-08-07] MEDS ORDERED: PEG 3350/NA SULF BICARB CL/KCL 4000 ML SOLN.RECON PO ONE ×2 (15:00→17:15)
[2019-08-08 09:14] LABS: ALBUMIN 3.3 g/dl (3.4-5.0); BILIRUBIN,TOTAL 0.8 mg/dL (0.2-1); BLOOD UREA NITROGEN 4.4 mg/dL (7-18); CALCIUM 7.9 mg/dL (8.5-10.1); CREATININE 0.6 mg/dL (0.55-1.3); TOT PROT 6.6 g/dl (6.4-8.2)
--- NOTE | 2019-08-08 09:25 | PN ---
Progress Note (short form) - Note Progress Note: 89 yo F h/o GI bleed, pt seen and examined at bedside. Pt is currently having no more bloody stool. Pt is scheduled for colonoscopy today. Pt denies any abd pain, fever, chills, n/v. Last Vital Signs Temp Pulse Resp BP Pulse Ox 98.0 F 101 H 18 150/75 98 08/08/19 07:35 08/08/19 07:35 08/08/19 07:35 08/08/19 07:35 08/08/19 08:50 CBC, BMP 08/08/19 07:38 08/08/19 07:38 PE: Gen: a&O x 3 Resp: breathing comfortably Abd; soft, nontender, nondistended, Problem List - Problems (1) BRBPR (bright red blood per rectum) Assessment/Plan: Plan -no acute surgical intervention at this time. -follow up colonoscopy -trend H/H Code(s): K62.5 - HEMORRHAGE OF ANUS AND RECTUM
[2019-08-08] MEDS: PANTOPRAZOLE SODIUM 40 MG VIAL IVPUSH SCH (09:43)
[2019-08-08] MEDS: DEXTROSE 5%-NORMAL SALINE 1,000 ML IV SCH ×2 (09:43→19:45)
[2019-08-08 10:04] LABS: BASO % 0.4 % (0-2.0); EOS % 1.5 % (0-4.5); HEMATOCRIT 26.5 % (32.4-45.2); LYMPH % 16.8 % (8-40); MCH 29.9 pg (25.7-33.7); MEAN CELL VOLUME 87.9 fl (80-96); MEAN PLT VOLUME 7.4 fl (7.5-11.1); MONO % 9.1 % (3.8-10.2); NEUT % 72.2 % (42.8-82.8); PLATELET COUNT 296 K/MM3 (134-434); RBC 3.01 M/mm3 (3.60-5.2); RDW 14.5 % (11.6-15.6); WHITE BLOOD COUNT 7.2 K/mm3 (4.0-10.0)
--- NOTE | 2019-08-08 13:42 | PN ---
Physical Exam: 89 F h/o HTN, diverticuosis, and diverticular bleed. Transferred from [facility] for further management of rectal bleeding. This morning patient had another episode of BRBPR and in stool. Denies CP/SOB/dizziness/abdominal pain. Will be sent for colonoscopy today. PE VSS GA standing up next to bed, AAOx3, speaking in full sentences HEENT NC/AT, EOMI, neck supple, MMM Chest CTAB, no crackles or wheezing CVS S1, S2+, RRR Abd Soft, NT, ND, BS+ Ext No LE edema, no calf tenderness, R hand and R forearm with swelling, cool to touch, ?infiltration of IV line (see incident report) Vital Signs - 24 hr 08/07/19 08/07/19 08/07/19 14:00 21:00 21:54 Temperature 98.4 F 98.7 F Pulse Rate 96 H 102 H Respiratory 19 20 20 Rate Blood Pressure 135/86 147/90 O2 Sat by Pulse 98 Oximetry (%) 08/08/19 08/08/19 08/08/19 02:00 05:50 07:35 Temperature 98.1 F 98.8 F 98.0 F Pulse Rate 97 H 92 H 101 H Respiratory 18 18 18 Rate Blood Pressure 129/62 123/59 L 150/75 O2 Sat by Pulse Oximetry (%) 08/08/19 08/08/19 08:50 11:00 Temperature 98.2 F Pulse Rate 102 H Respiratory 14 Rate Blood Pressure 126/66 O2 Sat by Pulse 98 Oximetry (%) Laboratory Results - last 24 hr 08/05/19 08/08/19 08/08/19 18:40 07:38 07:38 WBC Cancelled Corrected WBC (auto) Cancelled RBC Cancelled Hgb Cancelled Hct Cancelled MCV Cancelled MCH Cancelled MCHC Cancelled RDW Cancelled Plt Count Cancelled MPV Cancelled Absolute Neuts (auto) Cancelled Neutrophils % Cancelled Lymphocytes % Cancelled Monocytes % Cancelled Eosinophils % Cancelled Basophils % Cancelled Nucleated RBC % Cancelled Platelet Estimate Cancelled Platelet Comment Cancelled Sodium 141 Potassium 4.0 Chloride 112 H Carbon Dioxide 20 L Anion Gap 10 BUN 4.4 L Creatinine 0.6 Est GFR (CKD-EPI)AfAm 94.99 Est GFR (CKD-EPI)NonAf 81.95 Random Glucose 86 Calcium 7.9 L Phosphorus 3.0 Magnesium 2.0 Total Bilirubin 0.8 AST 35 ALT 20 Alkaline Phosphatase 60 Total Protein 6.6 Albumin 3.3 L Blood Type B POSITIVE Antibody Screen Negative Crossmatch See Detail 08/08/19 09:30 WBC 7.2 Corrected WBC (auto) RBC 3.01 L Hgb 9.0 L Hct 26.5 L MCV 87.9 MCH 29.9 MCHC 34.0 RDW 14.5 Plt Count 296 MPV 7.4 L Absolute Neuts (auto) 5.2 Neutrophils % 72.2 Lymphocytes % 16.8 Monocytes % 9.1 Eosinophils % 1.5 D Basophils % 0.4 Nucleated RBC % 0 Platelet Estimate Platelet Comment Sodium Potassium Chloride Carbon Dioxide Anion Gap BUN Creatinine Est GFR (CKD-EPI)AfAm Est GFR (CKD-EPI)NonAf Random Glucose Calcium Phosphorus Magnesium Total Bilirubin AST ALT Alkaline Phosphatase Total Protein Albumin Blood Type Antibody Screen Crossmatch Home Medications Medication Instructions Recorded Kranthi/D3/Mag11/Zinc/[employer]enger Agent/Tyrese/Bor 1 tab PO DAILY 08/05/19 [Caltrate 600+D Plus Tablet] Gluc Lopez/Chondro Lopez A/Vit C/Mn 1 each PO DAILY 08/05/19 [Glucosamine-Chondroitin Caps] Hydrochlorothiazide [Hctz -] 25 mg PO DAILY 08/05/19 Multivit with Calcium,Iron,Min 1 tab PO DAILY 08/05/19 [One Daily Women's] Nifedipine [Nifedipine ER] 60 mg PO HS 08/05/19 Current Medications Generic Name Dose Route Start Last Admin Trade Name Freq PRN Reason Stop Dose Admin Dextrose/Sodium Chloride 1,000 mls @ 75 mls/hr 08/07/19 02:50 08/08/19 09:43 D5-Ns - IV 75 mls/hr ASDIR FELICE Administration Pantoprazole Sodium 40 mg 08/07/19 10:00 08/08/19 09:43 Protonix Iv IVPUSH 40 mg DAILY FELICE Administration A/P: 89 F h/o diverticulosis, HTN, admitted for hematochezia, BRBPR and in stool, awaiting colonoscopy today, current HD stable. BRBPR likely 2/2 diverticular bleed, H/H stable from yesterday awaiting colonoscopy today diagnostic and possibly therapeutic Transfuse PRN, IVF, NPO, cont. PPI, Tylenol PRn for pain, avoid AC, SCD/OLEG for now HTN cont. BP meds DVT ppx: OLEG/SCD FEN: IVF/daily chem/cbc/NPO Med-Surg Visit type - Emergency Visit Emergency Visit: Yes ED Registration Date: 08/05/19 Care time: The patient presented to the Emergency Department on the above date and was hospitalized for further evaluation of their emergent condition. - New Patient This patient is new to me today: Yes Date on this admission: 08/08/19 - Critical Care Critical Care patient: No - Discharge Referral Referred to [facility] Med P.C.: No
--- NOTE | 2019-08-08 13:55 | PN ---
Progress Note (short form) - Note Progress Note: Patient with only a small amount of rectal bleeding today and was brought to Endoscopy for colonoscopy; in GI suite she passed large amount of BRB and clots with some associated weakness. Appears to be have rebleeding from ?diverticular? source. Discussed with Dr Bonilla Ortiz (surgery) and arrangements made for patient to go emergently to angiography with Dr. Garcia. Agree with PRBC transfusions and fluid resuscitation Defer colonoscopy at this time.
--- NOTE | 2019-08-08 19:33 | CONSULT ---
Consultation: REQUESTING PROVIDER: CONSULT REQUEST: We have been asked to medically evaluate this patient for post embolization management. HISTORY OF PRESENT ILLNESS: 89 yo F PMH HTN, arthritis, diverticulosis, and diverticular bleed, transferred from [facility] for further management of rectal bleeding. This morning, the patient experienced further BRBPR and ultimately underwent a colonscopy. During the colonoscopy, a source of bleeding was found and embolized. Patient complaints only of b/l knee pain. Reports that she normally takes acetaminophen and places lidocaine patches on her knees at home, but has been unable to do so today. Specifically denies CP/SOB/dizziness/abdominal pain. REVIEW OF SYSTEMS: CONSTITUTIONAL: Absent: fever, chills, diaphoresis, generalized weakness, malaise, loss of appetite, weight change HEENT: Absent: rhinorrhea, nasal congestion, throat pain, throat swelling, difficulty swallowing, mouth swelling, ear pain, eye pain, visual changes CARDIOVASCULAR: Absent: chest pain, syncope, palpitations, irregular heart rate, lightheadedness , peripheral edema RESPIRATORY: Absent: cough, shortness of breath, dyspnea with exertion, orthopnea, wheezing, stridor, hemoptysis GASTROINTESTINAL: Absent: abdominal pain, abdominal distension, nausea, vomiting, diarrhea, constipation, melena, hematochezia GENITOURINARY: Absent: dysuria, frequency, urgency, hesitancy, hematuria, flank pain, genital pain MUSCULOSKELETAL: Absent: myalgia, arthralgia, joint swelling, back pain, neck pain SKIN: Absent: rash, itching, pallor HEMATOLOGIC/IMMUNOLOGIC: Absent: easy bleeding, easy bruising, lymphadenopathy, frequent infections ENDOCRINE: Absent: unexplained weight gain, unexplained weight loss, heat intolerance, cold intolerance NEUROLOGIC: Absent: headache, focal weakness or paresthesias, dizziness, unsteady gait, seizure, mental status changes, bladder or bowel incontinence PSYCHIATRIC: Absent: anxiety, depression, suicidal or homicidal ideation, hallucinations. PHYSICAL EXAMINATION Vital Signs - 24 hr 08/07/19 08/07/19 08/08/19 21:00 21:54 02:00 Temperature 98.7 F 98.1 F Pulse Rate 102 H 97 H Pulse Rate [ Left Upper Arm] Respiratory 20 20 18 Rate Respiratory Rate [Left Upper Arm] Blood Pressure 147/90 129/62 Blood Pressure [Left Upper Arm ] O2 Sat by Pulse 98 Oximetry (%) O2 Sat by Pulse Oximetry (%) [ Left Upper Arm] 08/08/19 08/08/19 08/08/19 05:50 07:35 08:50 Temperature 98.8 F 98.0 F Pulse Rate 92 H 101 H Pulse Rate [ Left Upper Arm] Respiratory 18 18 Rate Respiratory Rate [Left Upper Arm] Blood Pressure 123/59 L 150/75 Blood Pressure [Left Upper Arm ] O2 Sat by Pulse 98 Oximetry (%) O2 Sat by Pulse Oximetry (%) [ Left Upper Arm] 08/08/19 08/08/19 08/08/19 11:00 16:50 16:57 Temperature 98.2 F Pulse Rate 102 H 87 Pulse Rate [ 103 H Left Upper Arm] Respiratory 14 20 Rate Respiratory 20 Rate [Left Upper Arm] Blood Pressure 126/66 161/89 Blood Pressure 145/74 [Left Upper Arm ] O2 Sat by Pulse 100 Oximetry (%) O2 Sat by Pulse 100 Oximetry (%) [ Left Upper Arm] 08/08/19 08/08/19 08/08/19 17:10 17:30 17:40 Temperature Pulse Rate Pulse Rate [ 88 93 H 96 H Left Upper Arm] Respiratory Rate Respiratory 20 20 20 Rate [Left Upper Arm] Blood Pressure Blood Pressure 132/70 143/75 149/86 [Left Upper Arm ] O2 Sat by Pulse Oximetry (%) O2 Sat by Pulse 100 100 100 Oximetry (%) [ Left Upper Arm] 08/08/19 08/08/19 08/08/19 17:55 18:10 18:24 Temperature Pulse Rate Pulse Rate [ 101 H 105 H 92 H Left Upper Arm] Respiratory Rate Respiratory 20 20 22 H Rate [Left Upper Arm] Blood Pressure Blood Pressure 149/88 136/74 88/50 L [Left Upper Arm ] O2 Sat by Pulse Oximetry (%) O2 Sat by Pulse 100 100 100 Oximetry (%) [ Left Upper Arm] 08/08/19 08/08/19 18:35 18:40 Temperature Pulse Rate 77 Pulse Rate [ 87 Left Upper Arm] Respiratory 20 Rate Respiratory 22 H Rate [Left Upper Arm] Blood Pressure 158/75 Blood Pressure 136/78 [Left Upper Arm ] O2 Sat by Pulse 100 Oximetry (%) O2 Sat by Pulse 100 Oximetry (%) [ Left Upper Arm] GENERAL: Awake, alert, and fully oriented, in no acute distress. HEAD: Normal with no signs of trauma. EYES: Pupils equal, round and reactive to light, extraocular movements intact, sclera anicteric, conjunctiva clear. No lid lag. EARS, NOSE, THROAT: Ears normal, nares patent, oropharynx clear without exudates. Moist mucous membranes. NECK: Normal range of motion, supple without lymphadenopathy, JVD, or masses. LUNGS: Breath sounds equal, clear to auscultation bilaterally. No wheezes, and no crackles. No accessory muscle use. HEART: Regular rate and rhythm, normal S1 and S2 without murmur, rub or gallop. ABDOMEN: Soft, nontender, not distended, normoactive bowel sounds, no guarding, no rebound, no masses. No hepatomegaly or splenomegaly. MUSCULOSKELETAL: Normal range of motion at all joints. No bony deformities or tenderness. No CVA tenderness. UPPER EXTREMITIES: 2+ pulses, warm, well-perfused. No cyanosis. No clubbing. Cap refill <2 seconds. No peripheral edema. LOWER EXTREMITIES: 2+ pulses, warm, well-perfused. No calf tenderness. No peripheral edema. NEUROLOGICAL: Cranial nerves II-XII intact. Normal speech. Normal gait. PSYCHIATRIC: Cooperative. Good eye contact. Appropriate mood and affect. SKIN: Warm, dry, normal turgor, no rashes or lesions noted. Laboratory Results - last 24 hr 08/05/19 08/08/19 08/08/19 18:40 07:38 07:38 WBC Cancelled Corrected WBC (auto) Cancelled RBC Cancelled Hgb Cancelled Hct Cancelled MCV Cancelled MCH Cancelled MCHC Cancelled RDW Cancelled Plt Count Cancelled MPV Cancelled Absolute Neuts (auto) Cancelled Neutrophils % Cancelled Lymphocytes % Cancelled Monocytes % Cancelled Eosinophils % Cancelled Basophils % Cancelled Nucleated RBC % Cancelled Platelet Estimate Cancelled Platelet Comment Cancelled Sodium 141 Potassium 4.0 Chloride 112 H Carbon Dioxide 20 L Anion Gap 10 BUN 4.4 L Creatinine 0.6 Est GFR (CKD-EPI)AfAm 94.99 Est GFR (CKD-EPI)NonAf 81.95 Random Glucose 86 Calcium 7.9 L Phosphorus 3.0 Magnesium 2.0 Total Bilirubin 0.8 AST 35 ALT 20 Alkaline Phosphatase 60 Total Protein 6.6 Albumin 3.3 L Blood Type B POSITIVE Antibody Screen Negative Crossmatch See Detail 08/08/19 09:30 WBC 7.2 Corrected WBC (auto) RBC 3.01 L Hgb 9.0 L Hct 26.5 L MCV 87.9 MCH 29.9 MCHC 34.0 RDW 14.5 Plt Count 296 MPV 7.4 L Absolute Neuts (auto) 5.2 Neutrophils % 72.2 Lymphocytes % 16.8 Monocytes % 9.1 Eosinophils % 1.5 D Basophils % 0.4 Nucleated RBC % 0 Platelet Estimate Platelet Comment Sodium Potassium Chloride Carbon Dioxide Anion Gap BUN Creatinine Est GFR (CKD-EPI)AfAm Est GFR (CKD-EPI)NonAf Random Glucose Calcium Phosphorus Magnesium Total Bilirubin AST ALT Alkaline Phosphatase Total Protein Albumin Blood Type Antibody Screen Crossmatch Active Medications Generic Name Dose Route Start Last Admin Trade Name Freq PRN Reason Stop Dose Admin Dextrose/Sodium Chloride 1,000 mls @ 75 mls/hr 08/07/19 02:50 08/08/19 09:43 D5-Ns - IV 75 mls/hr ASDIR FELICE Administration Lidocaine 2 patch 08/09/19 10:00 Lidoderm Patch - TP DAILY FELICE Miscellaneous 1 each 08/08/19 22:00 Lidoderm Patch Removal MC DAILY@2200 FEILCE Pantoprazole Sodium 40 mg 08/07/19 10:00 08/08/19 09:43 Protonix Iv IVPUSH 40 mg DAILY FELICE Administration ASSESSMENT/PLAN: Dispo: We will continue to follow the patient. Thank you for this consultative opportunity. ATTENDING PHYSICIAN STATEMENT I saw and evaluated the patient. I reviewed the resident's note and discussed the case with the resident. I agree with the resident's findings and plan as documented. SUBJECTIVE: OBJECTIVE: ASSESSMENT AND PLAN:
--- NOTE | 2019-08-08 19:34 | PN ---
Physical Exam: SUBJECTIVE: Patient seen and examined 89 yo F PMH HTN, osteoarthritis, diverticulosis, and diverticular bleed, initially transferred from [facility] for further management of rectal bleeding. This morning, patient was planned for colonscopy. However, before the colonoscopy began the patient passed large amounts of BRB and clots, associated with generalized weakness. The case was discussed with Dr. Bonilla Ortiz (surgery), and patient was then sent emergently to angiography with Dr. Garcia, where she underwent mesenteric coiling at the source. Patient was given 2 units pRBCS and 1L fluid. Patient complaints only of b/l knee pain. Reports that she normally takes acetaminophen and places lidocaine patches on her knees at home, but has been unable to do so today. Specifically denies CP/SOB/dizziness/abdominal pain. OBJECTIVE: Vital Signs Period Temp Pulse Resp BP Sys/Rolon Pulse Ox Last 24 Hr 98.0 F-98.8 F 77-105 14-22 88-161/50-90 98-100 GENERAL: The patient is awake, alert, and fully oriented, in no acute distress. HEAD: Normal with no signs of trauma. EYES: PERRL, extraocular movements intact, sclera anicteric, conjunctiva clear. No ptosis. ENT: Ears normal, nares patent, oropharynx clear without exudates NECK: Trachea midline, full range of motion, supple LUNGS: Breath sounds equal, clear to auscultation bilaterally HEART: Regular rate and rhythm, S1, S2 without murmur, rub or gallop ABDOMEN: Soft, nontender, nondistended, normoactive bowel sounds EXTREMITIES: 2+ pulses, warm, well-perfused, no edema. Tenderness at bilateral NEUROLOGICAL: Cranial nerves II through XII grossly intact. Normal speech, gait not observed. SKIN: Warm, dry Laboratory Results - last 24 hr 08/05/19 08/08/19 08/08/19 18:40 07:38 07:38 WBC Cancelled Corrected WBC (auto) Cancelled RBC Cancelled Hgb Cancelled Hct Cancelled MCV Cancelled MCH Cancelled MCHC Cancelled RDW Cancelled Plt Count Cancelled MPV Cancelled Absolute Neuts (auto) Cancelled Neutrophils % Cancelled Lymphocytes % Cancelled Monocytes % Cancelled Eosinophils % Cancelled Basophils % Cancelled Nucleated RBC % Cancelled Platelet Estimate Cancelled Platelet Comment Cancelled Sodium 141 Potassium 4.0 Chloride 112 H Carbon Dioxide 20 L Anion Gap 10 BUN 4.4 L Creatinine 0.6 Est GFR (CKD-EPI)AfAm 94.99 Est GFR (CKD-EPI)NonAf 81.95 Random Glucose 86 Calcium 7.9 L Phosphorus 3.0 Magnesium 2.0 Total Bilirubin 0.8 AST 35 ALT 20 Alkaline Phosphatase 60 Total Protein 6.6 Albumin 3.3 L Blood Type B POSITIVE Antibody Screen Negative Crossmatch See Detail 08/08/19 09:30 WBC 7.2 Corrected WBC (auto) RBC 3.01 L Hgb 9.0 L Hct 26.5 L MCV 87.9 MCH 29.9 MCHC 34.0 RDW 14.5 Plt Count 296 MPV 7.4 L Absolute Neuts (auto) 5.2 Neutrophils % 72.2 Lymphocytes % 16.8 Monocytes % 9.1 Eosinophils % 1.5 D Basophils % 0.4 Nucleated RBC % 0 Platelet Estimate Platelet Comment Sodium Potassium Chloride Carbon Dioxide Anion Gap BUN Creatinine Est GFR (CKD-EPI)AfAm Est GFR (CKD-EPI)NonAf Random Glucose Calcium Phosphorus Magnesium Total Bilirubin AST ALT Alkaline Phosphatase Total Protein Albumin Blood Type Antibody Screen Crossmatch Active Medications Generic Name Dose Route Start Last Admin Trade Name Freq PRN Reason Stop Dose Admin Dextrose/Sodium Chloride 1,000 mls @ 75 mls/hr 08/07/19 02:50 08/08/19 09:43 D5-Ns - IV 75 mls/hr ASDIR FELICE Administration Lidocaine 2 patch 08/09/19 10:00 Lidoderm Patch - TP DAILY FELICE Miscellaneous 1 each 08/08/19 22:00 Lidoderm Patch Removal MC DAILY@2200 FELICE Pantoprazole Sodium 40 mg 08/07/19 10:00 08/08/19 09:43 Protonix Iv IVPUSH 40 mg DAILY FELICE Administration ASSESSMENT/PLAN: 89 yo F PMH HTN, OA, diverticulosis with bleeding in the past, osteopenia, initially presented to the ICU with GI bleed, now s/p mesenteric coiling for acute GI bleed. Neuro: - AAOx3 - Ofirmev q6h PRN - Lidocaine patches on knees for pain - no acute issues GI - had GI bleed before colonoscopy - s/p emergent mesenteric coiling with Dr. Smith - s/p 2 units pRBCs - NPO - if patient has worsening bleeding or becomes hypotensive, call Dr. Smith directly - IR on board (Dr. Smith) - GI on board (Dr. Richards) - Surgery on board (Dr. Ortiz) - Maintain Hgb >7, transfuse PRN - Protonix 40 daily CV: - hx HTN - hemodynamically stable Renal: - no acute issues Prophylaxis: - SCDs - Protonix 40 daily Heme/Onc: - Hgb from 9 this morning to 7.9 despite 2 units pRBCs - transfusing 1 more unit, recheck CBC 1 hour after blood finished transfusing - ctm FENLTD: - D5NS @ 75 ccs/hr - recheck lytes, replete PRN - NPO Dispo: - continue to monitor in the ICU Visit type - Emergency Visit Emergency Visit: No - New Patient This patient is new to me today: Yes Date on this admission: 08/08/19 - Critical Care Critical Care patient: Yes Total Critical Care Time (in minutes): 45 Critical Care Statement: The care of this patient involved high complexity decision making to prevent further life threatening deterioration of the patient 's condition and/or to evaluate & treat vital organ system(s) failure or risk of failure. ATTENDING PHYSICIAN STATEMENT I saw and evaluated the patient. I reviewed the resident's note and discussed the case with the resident. I agree with the resident's findings and plan as documented. SUBJECTIVE: OBJECTIVE: ASSESSMENT AND PLAN:
[2019-08-08] MEDS ORDERED: ACETAMINOPHEN 1000 MG/100 ML VIAL (NON FORMULARY) IVPB ONE (19:37)
[2019-08-08] MEDS ORDERED: PEG 3350/NA SULF BICARB CL/KCL 4000 ML SOLN.RECON PO ONE (19:42)
[2019-08-08 21:18] LABS: BASO % 0.1 % (0-2.0); EOS % 0.2 % (0-4.5); HEMATOCRIT 23.5 % (32.4-45.2); HEMOGLOBIN 7.9 GM/dL (10.7-15.3); LYMPH % 8.2 % (8-40); MCH 30.2 pg (25.7-33.7); MCHC 33.7 g/dl (32.0-36.0); MEAN CELL VOLUME 89.6 fl (80-96); MEAN PLT VOLUME 7.9 fl (7.5-11.1); MONO % 6.7 % (3.8-10.2); NEUT % 84.8 % (42.8-82.8); PLATELET COUNT 232 K/MM3 (134-434); RBC 2.62 M/mm3 (3.60-5.2); RDW 14.4 % (11.6-15.6); WHITE BLOOD COUNT 9.2 K/mm3 (4.0-10.0)
[2019-08-08] MEDS: CHLORHEXIDINE GLUCONATE 4% CLEANSER FOR DECOLONIZATION TP SCH (21:19)
[2019-08-08] MEDS ORDERED: LIDOCAINE 5% TOPICAL PATCH TP ONE (21:24)
[2019-08-08] MEDS ORDERED: ACETAMINOPHEN 1000 MG/100 ML VIAL (NON FORMULARY) IVPB PRN (21:24)
[2019-08-08] MEDS ORDERED: LIDOCAINE 5% TOPICAL PATCH TP SCH (21:30)
[2019-08-08] MEDS ORDERED: LIDOCAINE PATCH REMOVAL MC SCH (22:00)
[2019-08-08] MEDS: MUPIROCIN 2% TOPICAL OINTMENT FOR DECOLONIZATION NS SCH (22:23)
[2019-08-08] MEDS: LIDOCAINE PATCH REMOVAL MC SCH ×2 (22:24)
[2019-08-09 07:07] LABS: BASO % 0.1 % (0-2.0); EOS % 0.8 % (0-4.5); HEMATOCRIT 23.4 % (32.4-45.2); HEMOGLOBIN 8.2 GM/dL (10.7-15.3); LYMPH % 15.7 % (8-40); MCH 30.7 pg (25.7-33.7); MCHC 34.9 g/dl (32.0-36.0); MEAN CELL VOLUME 87.7 fl (80-96); MEAN PLT VOLUME 7.5 fl (7.5-11.1); MONO % 8.5 % (3.8-10.2); NEUT % 74.9 % (42.8-82.8); PLATELET COUNT 212 K/MM3 (134-434); RBC 2.66 M/mm3 (3.60-5.2); RDW 14.1 % (11.6-15.6); WHITE BLOOD COUNT 9.3 K/mm3 (4.0-10.0)
[2019-08-09 07:41] LABS: ALBUMIN 2.8 g/dl (3.4-5.0); BILIRUBIN,TOTAL 0.6 mg/dL (0.2-1); BLOOD UREA NITROGEN 6.7 mg/dL (7-18); CALCIUM 7.5 mg/dL (8.5-10.1); CREATININE 0.6 mg/dL (0.55-1.3); MAGNESIUM 1.7 mg/dL (1.8-2.4); PHOSPHOROUS 3.5 mg/dL (2.5-4.9); POTASSIUM 3.1 mmol/L (3.5-5.1); TOT PROT 5.3 g/dl (6.4-8.2)
[2019-08-09] MEDS ORDERED: MAGNESIUM SULF 50% (8.12 MEQ/2 ML-1 GM VIAL) IVPB ONE ×2 (07:49→18:21)
[2019-08-09] MEDS: KCL 10 MEQ IVPB 10 MEQ/100 ML INFUS.BAG IVPB SCH ×3 (08:27→13:04)
[2019-08-09] MEDS: LIDOCAINE 5% TOPICAL PATCH TP SCH (09:20)
[2019-08-09] MEDS: PANTOPRAZOLE SODIUM 40 MG VIAL IVPUSH SCH (09:21)
[2019-08-09] MEDS: MUPIROCIN 2% TOPICAL OINTMENT FOR DECOLONIZATION NS SCH ×2 (09:21→21:44)
--- NOTE | 2019-08-09 11:49 | PN ---
Teaching Attending Note Name of Resident: Elias Alarcon ATTENDING PHYSICIAN STATEMENT I saw and evaluated the patient. I reviewed the resident's note and discussed the case with the resident. I agree with the resident's findings and plan as documented. SUBJECTIVE: Pt seen and examined in the ICU. s/p coli emolization yesterday. Denies shortness of breath, chest pain or abdominal pain. No bowel movements overnight. OBJECTIVE: Vital Signs Period Temp Pulse Resp BP Sys/Rolon Pulse Ox Last 24 Hr 98.4 F-98.4 F 77-105 17-23 87-161/50-89 100-100 Intake & Output 08/06/19 08/07/19 08/08/19 08/09/19 23:59 23:59 23:59 23:59 Intake Total 3000 5420 1275 1322 Output Total 400 500 Balance 2600 5420 1275 822 Weight 94.347 kg Gen: NAD at rest Heart: RRR Lung: decreased breath sounds at the bases Abd: soft, nontender Ext: no edema CBC, BMP 08/09/19 06:31 08/09/19 06:31 Active Medications Acetaminophen (Ofirmev Injection -) 1,000 mg IVPB Q6H PRN PRN Reason: MODERATE PAIN Chlorhexidine Gluconate (Hibiclens For Decolonization -) 1 applic TP HS [facility] Last Admin: 08/08/19 21:19 Dose: 1 applic Dextrose/Sodium Chloride (D5-Ns -) 1,000 mls @ 75 mls/hr IV ASDIR [facility] Last Admin: 08/08/19 19:45 Dose: 75 mls/hr Lidocaine (Lidoderm Patch -) 2 patch TP DAILY [facility] Last Admin: 08/09/19 09:20 Dose: 2 patch Miscellaneous (Lidoderm Patch Removal) 1 each MC DAILY@2200 [facility] Last Admin: 08/08/19 22:24 Dose: Not Given Miscellaneous (Lidoderm Patch Removal) 1 each MC DAILY@2200 [facility] Last Admin: 08/08/19 22:24 Dose: Not Given Mupirocin (Bactroban Ointment (For Decolonization) -) 1 applic NS BID [facility] Stop: 08/13/19 21:59 Last Admin: 08/09/19 09:21 Dose: 1 applic Pantoprazole Sodium (Protonix Iv) 40 mg IVPUSH DAILY [facility] Last Admin: 08/09/19 09:21 Dose: 40 mg ASSESSMENT AND PLAN: GI Bleed Diverticulosis Acute Blood Loss Anemia HTN - monitor H/H - transfuse as needed - protonix - NPO - IVF - DVT prophylaxis
[2019-08-09] MEDS ORDERED: POTASSIUM CHLORIDE TABS 20 MEQ TABLET.ER (FP) PO ONE ×2 (11:57→18:20)
--- NOTE | 2019-08-09 13:16 | PN ---
Physical Exam: SUBJECTIVE: Patient seen and examined in the morning. No acute events overnight , patient was transferred in the early evening to ICU after IR mesenteric coiling completed. Denies bowel movements overnight, no chest pain, no shortness of breath, no abdominal pain, no subjective fevers, no weakness, no palpitations. OBJECTIVE: Vital Signs Period Temp Pulse Resp BP Sys/Rolon Pulse Ox Last 24 Hr 98.4 F-98.4 F 77-105 17-23 87-161/50-89 100-100 GENERAL: The patient is awake, alert, and fully oriented, in no acute distress. HEAD: Normal with no signs of trauma. EYES: PERRL, extraocular movements intact, sclera anicteric, conjunctiva clear. No ptosis. ENT: Ears normal, nares patent, oropharynx clear without exudates, moist mucous membranes. NECK: Trachea midline, full range of motion, supple. LUNGS: Breath sounds equal, clear to auscultation bilaterally, no wheezes, no crackles, no accessory muscle use. HEART: Regular rate and rhythm, S1, S2 without murmur, rub or gallop. ABDOMEN: Soft, nontender, nondistended, normoactive bowel sounds, no guarding, no rebound, no hepatosplenomegaly, no masses. EXTREMITIES: 2+ pulses, warm, well-perfused, no edema. Right groin has puncture site for IR procedure, dressing in place, non blood or drainage on dressing. NEUROLOGICAL: Cranial nerves II through XII grossly intact. Normal speech, gait not observed. PSYCH: Normal mood, normal affect. SKIN: Warm, dry, normal turgor, no rashes or lesions noted Laboratory Results - last 24 hr 08/05/19 08/08/19 08/09/19 18:40 20:13 00:32 WBC 9.2 RBC 2.62 L Hgb 7.9 L Hct 23.5 L MCV 89.6 MCH 30.2 MCHC 33.7 RDW 14.4 Plt Count 232 D MPV 7.9 Absolute Neuts (auto) 7.8 Neutrophils % 84.8 H Lymphocytes % 8.2 D Monocytes % 6.7 Eosinophils % 0.2 D Basophils % 0.1 Nucleated RBC % 0 Sodium Potassium Chloride Carbon Dioxide Anion Gap BUN Creatinine Est GFR (CKD-EPI)AfAm Est GFR (CKD-EPI)NonAf Random Glucose Calcium Phosphorus Magnesium Total Bilirubin AST ALT Alkaline Phosphatase Total Protein Albumin Blood Type B POSITIVE B POSITIVE Antibody Screen Negative Negative Crossmatch See Detail See Detail 08/09/19 08/09/19 06:31 06:31 WBC 9.3 RBC 2.66 L Hgb 8.2 L Hct 23.4 L MCV 87.7 MCH 30.7 MCHC 34.9 RDW 14.1 Plt Count 212 MPV 7.5 Absolute Neuts (auto) 7.0 Neutrophils % 74.9 Lymphocytes % 15.7 D Monocytes % 8.5 Eosinophils % 0.8 D Basophils % 0.1 Nucleated RBC % 0 Sodium 145 Potassium 3.1 L Chloride 115 H Carbon Dioxide 23 Anion Gap 7 L BUN 6.7 L Creatinine 0.6 Est GFR (CKD-EPI)AfAm 94.99 Est GFR (CKD-EPI)NonAf 81.95 Random Glucose 99 Calcium 7.5 L Phosphorus 3.5 Magnesium 1.7 L Total Bilirubin 0.6 AST 24 ALT 17 Alkaline Phosphatase 50 Total Protein 5.3 L Albumin 2.8 L Blood Type Antibody Screen Crossmatch Active Medications Generic Name Dose Route Start Last Admin Trade Name Freq PRN Reason Stop Dose Admin Acetaminophen 1,000 mg 08/08/19 21:24 Ofirmev Injection - IVPB Q6H PRN MODERATE PAIN Chlorhexidine Gluconate 1 applic 08/08/19 22:00 08/08/19 21:19 Hibiclens For Decolonization - TP 1 applic HS FELICE Administration Dextrose/Sodium Chloride 1,000 mls @ 75 mls/hr 08/08/19 19:42 08/08/19 19:45 D5-Ns - IV 75 mls/hr ASDIR FELICE Administration Lidocaine 2 patch 08/09/19 10:00 08/09/19 09:20 Lidoderm Patch - TP 2 patch DAILY FELICE Administration Miscellaneous 1 each 08/08/19 22:00 08/08/19 22:24 Lidoderm Patch Removal MC Not Given DAILY@2200 FELICE Miscellaneous 1 each 08/08/19 22:00 08/08/19 22:24 Lidoderm Patch Removal MC Not Given DAILY@2200 FELICE Mupirocin 1 applic 08/08/19 22:00 08/09/19 09:21 Bactroban Ointment (For Decolonization) - NS 08/13/19 21:59 1 applic BID FELICE Administration Pantoprazole Sodium 40 mg 08/09/19 10:00 08/09/19 09:21 Protonix Iv IVPUSH 40 mg DAILY FELICE Administration ASSESSMENT/PLAN: 89 F PMH HTN, OA, diverticulosis with bleeding in the past, osteopenia, presented with GI bleed, s/p mesenteric coiling for acute GI bleed. Neuro: - AAOx3 - Ofirmev q6h PRN, and lidocaine patches for pain - no acute issues, continue to monitor. Cardiovascular -Hx of HTN, HD stable. -S/p 3 units transfused yesterday -Continue to monitor, holding HTN meds. -If hypotensive will transfuse and alert Dr. Garcia Pulmonary -No acute events, patient not requiring any supplemental oxygen -Continue to monitor GI -GI bleed, s/p mesenteric coiling -S/p 3 units pRBC -CTA/P shows Diverticulosis coli in the descending and sigmoid colon with mild thickening of the junction of the distal descending and proximal sigmoid colon and without surrounding inflammatory changes to suggest acute diverticulitis. Correlation with colonoscopy is needed to evaluate for chronic thickening versus an infiltrative process. Findings consistent with acute hemorrhage within the colon at the junction of the distal descending and proximal sigmoid colon. Watery stool in the entire colon with mild dilatation -NPO -IR consulted appreciate recs -GI consulted appreciate recs -Surgery consulted appreciate recs Renal -No acute issues, no hematuria -Will continue to monitor, repleted electrolyte abnormalities Heme/Onc -GI bleed likely source of anemia -Hgb of 7.9 last night; was given 1 unit of blood -hgb of 8.2 in the morning, repeat CBC showed 7.3. 2 units transfused -Transfuse to keep Hgb > 7 DVT: SCD GI: Protonix 40 daily F: D5NS @ 75 E: Monitor CMP N: NPO Lines: Peripheral IV in place Dispo: - continue to monitor in the ICU Visit type - Emergency Visit Emergency Visit: Yes ED Registration Date: 08/05/19 Care time: The patient presented to the Emergency Department on the above date and was hospitalized for further evaluation of their emergent condition. - New Patient This patient is new to me today: Yes Date on this admission: 08/09/19 - Critical Care Critical Care patient: Yes Total Critical Care Time (in minutes): 45 Critical Care Statement: The care of this patient involved high complexity decision making to prevent further life threatening deterioration of the patient 's condition and/or to evaluate & treat vital organ system(s) failure or risk of failure. ATTENDING PHYSICIAN STATEMENT I saw and evaluated the patient. I reviewed the resident's note and discussed the case with the resident. I agree with the resident's findings and plan as documented. SUBJECTIVE: OBJECTIVE: ASSESSMENT AND PLAN:
--- NOTE | 2019-08-09 13:41 | PN ---
Progress Note (short form) - Note Progress Note: Attending Surgeon Seen in f/u'; no bloody BM's VSS AF abdo-soft and non tender h/h stable IMP: LGIB/diverticulosis; s/p CTA and embolization w/coils PLAN: Continue present tx; monitor for abdominal pain/rebleed. Bonilla Ortiz MD FACS
[2019-08-09 14:24] LABS: BASO % 0.2 % (0-2.0); EOS % 1.2 % (0-4.5); HEMATOCRIT 21.2 % (32.4-45.2); HEMOGLOBIN 7.3 GM/dL (10.7-15.3); LYMPH % 14.8 % (8-40); MCH 30.3 pg (25.7-33.7); MCHC 34.5 g/dl (32.0-36.0); MEAN PLT VOLUME 7.3 fl (7.5-11.1); MONO % 8.5 % (3.8-10.2); NEUT % 75.3 % (42.8-82.8); PLATELET COUNT 204 K/MM3 (134-434); RDW 14.4 % (11.6-15.6); WHITE BLOOD COUNT 9.7 K/mm3 (4.0-10.0)
[2019-08-09] MEDS: DEXTROSE 5%-NORMAL SALINE 1,000 ML IV SCH ×2 (15:38→21:22)
--- NOTE | 2019-08-09 18:29 | PN ---
Physical Exam: 89 F h/o HTN, diverticuosis, and diverticular bleed. Transferred from [facility] for further management of rectal bleeding. Went for colonoscopy until she had continuous episodes of BRBPR with passing blood clots in stool, colonoscopy cancelled patient urgently taken to IR where mesenteric embolization and coils were placed for refractory diverticular bleeding. Received 3u pRBCs since procedure, H/H currently stable, no further bleeding observed, HD stable, mild drop in H/H but expected after coiling. Further monitoring in ICU. Patient comfortable, denies complaints except for b/l knee pain. PE VSS GA NAD, lying in stretcher, tired appearing, AAox3, speaking in full sentences HEENT NC/AT, EOMI, neck supple, MMM Chest CTAB, no crackles or wheezing CVS S1, S2+, RRR Abd Soft, NT, ND, BS+, no guarding Ext No LE edema, no calf tenderness, R hand and R forearm with swelling which has improved Rectal exam: no bleeding or clots appreciated on rectal exam, dry area Vital Signs - 24 hr 08/08/19 08/08/19 08/08/19 18:35 18:40 19:00 Temperature 98.4 F Pulse Rate 77 100 H Pulse Rate [ 87 Left Upper Arm] Respiratory 20 23 H Rate Respiratory 22 H Rate [Left Upper Arm] Blood Pressure 158/75 133/65 Blood Pressure 136/78 [Left Upper Arm ] O2 Sat by Pulse 100 Oximetry (%) O2 Sat by Pulse 100 Oximetry (%) [ Left Upper Arm] 08/08/19 08/08/19 08/09/19 21:00 23:00 00:00 Temperature 98.4 F Pulse Rate 93 H 89 Pulse Rate [ Left Upper Arm] Respiratory 17 20 Rate Respiratory Rate [Left Upper Arm] Blood Pressure 104/50 L 87/53 L Blood Pressure [Left Upper Arm ] O2 Sat by Pulse 100 Oximetry (%) O2 Sat by Pulse Oximetry (%) [ Left Upper Arm] 08/09/19 08/09/19 08/09/19 04:00 08:00 09:00 Temperature Pulse Rate 94 H 92 H Pulse Rate [ Left Upper Arm] Respiratory 18 18 18 Rate Respiratory Rate [Left Upper Arm] Blood Pressure 115/70 122/63 Blood Pressure [Left Upper Arm ] O2 Sat by Pulse 100 Oximetry (%) O2 Sat by Pulse Oximetry (%) [ Left Upper Arm] 08/09/19 08/09/19 08/09/19 10:00 12:00 14:41 Temperature 98.6 F Pulse Rate 90 92 H 94 H Pulse Rate [ Left Upper Arm] Respiratory 18 18 18 Rate Respiratory Rate [Left Upper Arm] Blood Pressure 93/52 L 98/50 L 127/66 Blood Pressure [Left Upper Arm ] O2 Sat by Pulse Oximetry (%) O2 Sat by Pulse Oximetry (%) [ Left Upper Arm] Laboratory Results - last 24 hr 08/05/19 08/08/19 08/09/19 18:40 20:13 00:32 WBC 9.2 RBC 2.62 L Hgb 7.9 L Hct 23.5 L MCV 89.6 MCH 30.2 MCHC 33.7 RDW 14.4 Plt Count 232 D MPV 7.9 Absolute Neuts (auto) 7.8 Neutrophils % 84.8 H Lymphocytes % 8.2 D Monocytes % 6.7 Eosinophils % 0.2 D Basophils % 0.1 Nucleated RBC % 0 Sodium Potassium Chloride Carbon Dioxide Anion Gap BUN Creatinine Est GFR (CKD-EPI)AfAm Est GFR (CKD-EPI)NonAf Random Glucose Calcium Phosphorus Magnesium Total Bilirubin AST ALT Alkaline Phosphatase Total Protein Albumin Blood Type B POSITIVE Antibody Screen Negative Crossmatch See Detail See Detail 08/09/19 08/09/19 08/09/19 06:31 06:31 13:59 WBC 9.3 9.7 RBC 2.66 L 2.40 L Hgb 8.2 L 7.3 L Hct 23.4 L 21.2 L MCV 87.7 88.0 MCH 30.7 30.3 MCHC 34.9 34.5 RDW 14.1 14.4 Plt Count 212 204 MPV 7.5 7.3 L Absolute Neuts (auto) 7.0 7.3 Neutrophils % 74.9 75.3 Lymphocytes % 15.7 D 14.8 Monocytes % 8.5 8.5 Eosinophils % 0.8 D 1.2 Basophils % 0.1 0.2 Nucleated RBC % 0 0 Sodium 145 Potassium 3.1 L Chloride 115 H Carbon Dioxide 23 Anion Gap 7 L BUN 6.7 L Creatinine 0.6 Est GFR (CKD-EPI)AfAm 94.99 Est GFR (CKD-EPI)NonAf 81.95 Random Glucose 99 Calcium 7.5 L Phosphorus 3.5 Magnesium 1.7 L Total Bilirubin 0.6 AST 24 ALT 17 Alkaline Phosphatase 50 Total Protein 5.3 L Albumin 2.8 L Blood Type Antibody Screen Crossmatch Current Medications Generic Name Dose Route Start Last Admin Trade Name Jayaq PRN Reason Stop Dose Admin Acetaminophen 1,000 mg 08/08/19 21:24 Ofirmev Injection - IVPB Q6H PRN MODERATE PAIN Chlorhexidine Gluconate 1 applic 08/08/19 22:00 08/08/19 21:19 Hibiclens For Decolonization - TP 1 applic HS FELICE Administration Dextrose/Sodium Chloride 1,000 mls @ 75 mls/hr 08/08/19 19:42 08/09/19 15:38 D5-Ns - IV 75 mls/hr ASDIR FELICE Administration Lidocaine 2 patch 08/09/19 10:00 08/09/19 09:20 Lidoderm Patch - TP 2 patch DAILY FELICE Administration Miscellaneous 1 each 08/08/19 22:00 08/08/19 22:24 Lidoderm Patch Removal MC Not Given DAILY@2200 FELICE Miscellaneous 1 each 08/08/19 22:00 08/08/19 22:24 Lidoderm Patch Removal MC Not Given DAILY@2200 FELICE Mupirocin 1 applic 08/08/19 22:00 08/09/19 09:21 Bactroban Ointment (For Decolonization) - NS 08/13/19 21:59 1 applic BID FELICE Administration Pantoprazole Sodium 40 mg 08/09/19 10:00 08/09/19 09:21 Protonix Iv IVPUSH 40 mg DAILY FELICE Administration A/P: 89 F h/o diverticulosis, HTN, admitted for hematochezia, BRBPR and in stool, s/ p coiling and embolization of mesenteric vessels. being monitored in ICU. BRBPR with passage of clots s/p coiling and mesenteric embolization by IR likely 2/2 diverticular bleed, H/H slight drop which is expected, if significant bleeding occurs and further passage of clots, call IR electronic assembler and transfuse as needed Transfuse PRN, IVF, NPO, cont. PPI, Tylenol PRn for pain, avoid AC, SCD/OLEG for now HTN hold BP meds IVF DVT ppx: OLEG/SCD FEN: IVF/daily chem/cbc/NPO ICU monitoring Visit type - Emergency Visit Emergency Visit: Yes ED Registration Date: 08/05/19 Care time: The patient presented to the Emergency Department on the above date and was hospitalized for further evaluation of their emergent condition. - New Patient This patient is new to me today: No - Critical Care Critical Care patient: Yes Total Critical Care Time (in minutes): 30 Critical Care Statement: The care of this patient involved high complexity decision making to prevent further life threatening deterioration of the patient 's condition and/or to evaluate & treat vital organ system(s) failure or risk of failure. - Discharge Referral Referred to [facility] No
[2019-08-09] MEDS: CHLORHEXIDINE GLUCONATE 4% CLEANSER FOR DECOLONIZATION TP SCH (21:44)
[2019-08-09] MEDS: LIDOCAINE PATCH REMOVAL MC SCH ×2 (21:45)
[2019-08-10 00:23] LABS: BASO % 0.4 % (0-2.0); EOS % 1.9 % (0-4.5); HEMATOCRIT 26.1 % (32.4-45.2); HEMOGLOBIN 9.1 GM/dL (10.7-15.3); LYMPH % 18.9 % (8-40); MCH 30.8 pg (25.7-33.7); MCHC 34.9 g/dl (32.0-36.0); MEAN CELL VOLUME 88.1 fl (80-96); MEAN PLT VOLUME 7.5 fl (7.5-11.1); MONO % 9.2 % (3.8-10.2); NEUT % 69.6 % (42.8-82.8); PLATELET COUNT 192 K/MM3 (134-434); RBC 2.97 M/mm3 (3.60-5.2); RDW 13.9 % (11.6-15.6); WHITE BLOOD COUNT 9.2 K/mm3 (4.0-10.0)
[2019-08-10 07:18] LABS: BASO % 0.2 % (0-2.0); EOS % 2.3 % (0-4.5); HEMATOCRIT 25.9 % (32.4-45.2); HEMOGLOBIN 9.2 GM/dL (10.7-15.3); LYMPH % 14.4 % (8-40); MCH 30.9 pg (25.7-33.7); MCHC 35.3 g/dl (32.0-36.0); MEAN CELL VOLUME 87.4 fl (80-96); MEAN PLT VOLUME 7.6 fl (7.5-11.1); MONO % 10.2 % (3.8-10.2); NEUT % 72.9 % (42.8-82.8); PLATELET COUNT 198 K/MM3 (134-434); RBC 2.96 M/mm3 (3.60-5.2); RDW 14.1 % (11.6-15.6); WHITE BLOOD COUNT 8.6 K/mm3 (4.0-10.0)
[2019-08-10 08:28] LABS: ALBUMIN 2.6 g/dl (3.4-5.0); BILIRUBIN,TOTAL 0.7 mg/dL (0.2-1); BLOOD UREA NITROGEN 4.9 mg/dL (7-18); CALCIUM 7.9 mg/dL (8.5-10.1); CREATININE 0.5 mg/dL (0.55-1.3); MAGNESIUM 1.8 mg/dL (1.8-2.4); TOT PROT 5.1 g/dl (6.4-8.2)
--- NOTE | 2019-08-10 08:54 | PN ---
Physical Exam: SUBJECTIVE: Patient seen and examined. No acute events overnight. Received 2U pRBC, repeat hgb 9.2 OBJECTIVE: Vital Signs Period Temp Pulse Resp BP Sys/Rolon Pulse Ox Last 24 Hr 98.4 F-99.2 F 83-96 17-22 93-157/50-99 96-100 GENERAL: The patient is awake, alert, and fully oriented, in no acute distress. HEENT: NCAT. No JVD LUNGS: Breath sounds equal, clear to auscultation bilaterally, no wheezes, no crackles, no accessory muscle use. HEART: Regular rate and rhythm, S1, S2 without murmur, rub or gallop. ABDOMEN: Soft, nontender, nondistended, normoactive bowel sounds, no guarding, EXTREMITIES: 2+ pulses, warm, well-perfused, no edema. NEUROLOGICAL: Cranial nerves II through XII grossly intact. PSYCH: Normal mood, normal affect. SKIN: Warm, dry Laboratory Results - last 24 hr Laboratory Last Values WBC 8.6 K/mm3 (4.0-10.0) 08/10/19 06:15 Corrected WBC (auto) Cancelled 08/08/19 07:38 RBC 2.96 M/mm3 (3.60-5.2) L 08/10/19 06:15 Hgb 9.2 GM/dL (10.7-15.3) L 08/10/19 06:15 Hct 25.9 % (32.4-45.2) L 08/10/19 06:15 MCV 87.4 fl (80-96) 08/10/19 06:15 MCH 30.9 pg (25.7-33.7) 08/10/19 06:15 MCHC 35.3 g/dl (32.0-36.0) 08/10/19 06:15 RDW 14.1 % (11.6-15.6) 08/10/19 06:15 Plt Count 198 K/MM3 (134-434) 08/10/19 06:15 MPV 7.6 fl (7.5-11.1) 08/10/19 06:15 Absolute Neuts (auto) 6.3 K/mm3 (1.5-8.0) 08/10/19 06:15 Neutrophils % 72.9 % (42.8-82.8) 08/10/19 06:15 Lymphocytes % 14.4 % (8-40) D 08/10/19 06:15 Monocytes % 10.2 % (3.8-10.2) 08/10/19 06:15 Eosinophils % 2.3 % (0-4.5) 08/10/19 06:15 Basophils % 0.2 % (0-2.0) 08/10/19 06:15 Nucleated RBC % 0 % (0-0) 08/10/19 06:15 Platelet Estimate Cancelled 08/08/19 07:38 Platelet Comment Cancelled 08/08/19 07:38 PT with INR 13.20 SEC (9.7-13.0) H 08/07/19 05:15 INR 1.12 (0.83-1.09) H 08/07/19 05:15 PTT (Actin FS) 25.5 SECONDS (25.2-36.5) 08/06/19 15:40 Sodium 144 mmol/L (136-145) 08/10/19 06:15 Potassium 3.0 mmol/L (3.5-5.1) L 08/10/19 06:15 Chloride 112 mmol/L (98-107) H 08/10/19 06:15 Carbon Dioxide 25 mmol/L (21-32) 08/10/19 06:15 Anion Gap 7 MMOL/L (8-16) L 08/10/19 06:15 BUN 4.9 mg/dL (7-18) L 08/10/19 06:15 Creatinine 0.5 mg/dL (0.55-1.3) L 08/10/19 06:15 Est GFR (CKD-EPI)AfAm 100.86 08/10/19 06:15 Est GFR (CKD-EPI)NonAf 87.02 08/10/19 06:15 Random Glucose 75 mg/dL (74-106) 08/10/19 06:15 Lactic Acid 2.1 mmol/L (0.4-2.0) H 08/06/19 15:40 Calcium 7.9 mg/dL (8.5-10.1) L 08/10/19 06:15 Phosphorus 3.0 mg/dL (2.5-4.9) 08/10/19 06:15 Magnesium 1.8 mg/dL (1.8-2.4) 08/10/19 06:15 Total Bilirubin 0.7 mg/dL (0.2-1) 08/10/19 06:15 AST 24 U/L (15-37) 08/10/19 06:15 ALT 17 U/L (13-61) 08/10/19 06:15 Alkaline Phosphatase 48 U/L (45-117) 08/10/19 06:15 Total Protein 5.1 g/dl (6.4-8.2) L 08/10/19 06:15 Albumin 2.6 g/dl (3.4-5.0) L 08/10/19 06:15 Blood Type B POSITIVE 08/09/19 00:32 Antibody Screen Negative 08/09/19 00:32 Crossmatch See Detail 08/09/19 00:32 Active Medications Current Medications Acetaminophen (Ofirmev Injection -) 1,000 mg IVPB Q6H PRN PRN Reason: MODERATE PAIN Chlorhexidine Gluconate (Hibiclens For Decolonization -) 1 applic TP HS [facility] Last Admin: 08/09/19 21:44 Dose: 1 applic Dextrose/Sodium Chloride (D5-Ns -) 1,000 mls @ 75 mls/hr IV ASDIR [facility] Last Admin: 08/09/19 21:22 Dose: Not Given Potassium Chloride (Potassium Chloride 10 Meq Premix Ivpb -) 10 meq in 100 mls @ 100 mls/hr IVPB Q60M [facility] Stop: 08/10/19 12:29 Lidocaine (Lidoderm Patch -) 2 patch TP DAILY [facility] Last Admin: 08/09/19 09:20 Dose: 2 patch Miscellaneous (Lidoderm Patch Removal) 1 each MC DAILY@2200 [facility] Last Admin: 08/09/19 21:45 Dose: 1 each Miscellaneous (Lidoderm Patch Removal) 1 each MC DAILY@2200 [facility] Last Admin: 08/09/19 21:45 Dose: 1 each Mupirocin (Bactroban Ointment (For Decolonization) -) 1 applic NS BID [facility] Stop: 08/13/19 21:59 Last Admin: 08/09/19 21:44 Dose: 1 applic Pantoprazole Sodium (Protonix Iv) 40 mg IVPUSH DAILY [facility] Last Admin: 08/09/19 09:21 Dose: 40 mg ASSESSMENT/PLAN: 89 y.o. F PMH HTN, diverticular bleeds in the past who presented for BRBPR x 2, found to have acute diverticular bleed at the junction of distal descending colon and proximal sigmoid colon. #Neuro -AAOx3 -no acute issues #CV -Hx HTN, holding home HCTZ -monitor BP closely -if hypotensive will transfuse and alert Dr. Mendoza #Pulm -saturating well on room air -no acute issues continue to monitor #Heme/onc -hgb dropped yesterday by 1 g -transfused total 3U pRBC yesterday -hgb improved to 9.2 this morning -continue to monitor daily cbc -monitor for bleeding, patient denies today -maintain Hgb >7 transfuse prn #GI -POD #2 s/p mesenteric embolization & coiling of acute diverticular hemorrhage -passing flatus -has not had BM since procedure -patient denies further episodes of bleeding -NPO -IVF -fall precautions #FENLTD -D5Ns @75cc.hr -trend lytes replete prn -NPO -peripheral IVs #PPX -holding chemical ac in setting of GI bleed -protonix 40mg IV daily #Dispo -continue to monitor in ICU; can transfer to floors if hgb stable Visit type - Emergency Visit Emergency Visit: No - New Patient This patient is new to me today: Yes Date on this admission: 08/10/19 - Critical Care Critical Care patient: Yes Total Critical Care Time (in minutes): 45 Critical Care Statement: The care of this patient involved high complexity decision making to prevent further life threatening deterioration of the patient 's condition and/or to evaluate & treat vital organ system(s) failure or risk of failure. ATTENDING PHYSICIAN STATEMENT I saw and evaluated the patient. I reviewed the resident's note and discussed the case with the resident. I agree with the resident's findings and plan as documented. SUBJECTIVE: OBJECTIVE: ASSESSMENT AND PLAN:
[2019-08-10] MEDS: LIDOCAINE 5% TOPICAL PATCH TP SCH (09:11)
[2019-08-10] MEDS: KCL 10 MEQ IVPB 10 MEQ/100 ML INFUS.BAG IVPB SCH ×3 (09:11→13:46)
[2019-08-10] MEDS: PANTOPRAZOLE SODIUM 40 MG VIAL IVPUSH SCH (09:11)
[2019-08-10] MEDS ORDERED: POTASSIUM CHLORIDE TABS 20 MEQ TABLET.ER (FP) PO ONE (09:11)
[2019-08-10] MEDS: MUPIROCIN 2% TOPICAL OINTMENT FOR DECOLONIZATION NS SCH ×2 (09:11→21:13)
--- NOTE | 2019-08-10 10:53 | PN ---
Teaching Attending Note Name of Resident: Gretchen Sanchez ATTENDING PHYSICIAN STATEMENT I saw and evaluated the patient. I reviewed the resident's note and discussed the case with the resident. I agree with the resident's findings and plan as documented. SUBJECTIVE: Pt seen and examined in the ICU. No bowel movements, no further bleeding. Last H /H stable. OBJECTIVE: Vital Signs Period Temp Pulse Resp BP Sys/Rolon Pulse Ox Last 24 Hr 97.4 F-99.2 F 83-96 17-22 98-157/50-99 96-96 Intake & Output 08/07/19 08/08/19 08/09/19 08/10/19 23:59 23:59 23:59 23:59 Intake Total 5420 1275 3022 525 Output Total 1600 500 Balance 5420 1275 1422 25 Weight 94.347 kg Gen: NAD at rest Heart: RRR Lung: decreased breath sounds at the bases Abd: soft, nontender Ext: no edema CBC, BMP 08/10/19 06:15 08/10/19 06:15 Active Medications Acetaminophen (Ofirmev Injection -) 1,000 mg IVPB Q6H PRN PRN Reason: MODERATE PAIN Chlorhexidine Gluconate (Hibiclens For Decolonization -) 1 applic TP HS [facility] Last Admin: 08/09/19 21:44 Dose: 1 applic Dextrose/Sodium Chloride (D5-Ns -) 1,000 mls @ 75 mls/hr IV ASDIR [facility] Last Admin: 08/09/19 21:22 Dose: Not Given Potassium Chloride (Potassium Chloride 10 Meq Premix Ivpb -) 10 meq in 100 mls @ 100 mls/hr IVPB Q60M [facility] Stop: 08/10/19 12:29 Last Admin: 08/10/19 09:11 Dose: 100 mls/hr Lidocaine (Lidoderm Patch -) 2 patch TP DAILY [facility] Last Admin: 08/10/19 09:11 Dose: 2 patch Miscellaneous (Lidoderm Patch Removal) 1 each MC DAILY@2200 [facility] Last Admin: 08/09/19 21:45 Dose: 1 each Miscellaneous (Lidoderm Patch Removal) 1 each MC DAILY@2200 [facility] Last Admin: 08/09/19 21:45 Dose: 1 each Mupirocin (Bactroban Ointment (For Decolonization) -) 1 applic NS BID [facility] Stop: 08/13/19 21:59 Last Admin: 08/10/19 09:11 Dose: 1 applic Pantoprazole Sodium (Protonix Iv) 40 mg IVPUSH DAILY [facility] Last Admin: 08/10/19 09:11 Dose: 40 mg ASSESSMENT AND PLAN: GI Bleed s/p IR coil embolization Diverticulosis Acute Blood Loss Anemia HTN - monitor H/H - transfuse as needed - protonix - NPO - IVF - DVT prophylaxis - can monitor on floor if H/H stable
--- NOTE | 2019-08-10 18:43 | PN ---
Physical Exam: 89 F h/o HTN, diverticuosis, and diverticular bleed. Transferred from [facility] for further management of rectal bleeding. Went for colonoscopy until she had continuous episodes of BRBPR with passing blood clots in stool, colonoscopy cancelled patient urgently taken to IR where mesenteric embolization and coils were placed for refractory diverticular bleeding. Being monitored in ICU, H/H stable, BP stable, no further bleeding episodes, will advance diet and observe. PE VSS GA NAD, lying in stretcher, tired appearing, AAox3, speaking in full sentences HEENT NC/AT, EOMI, neck supple, MMM Chest CTAB, no crackles or wheezing CVS S1, S2+, RRR Abd Soft, NT, ND, BS+, no guarding Ext No LE edema, no calf tenderness, R hand and R forearm with swelling which has improved Rectal exam: no bleeding or clots appreciated on rectal exam, dry area Vital Signs - 24 hr 08/09/19 08/09/19 08/09/19 20:17 20:20 21:00 Temperature 99 F Pulse Rate 96 H Respiratory 18 17 Rate Blood Pressure 157/79 O2 Sat by Pulse 96 96 Oximetry (%) 08/09/19 08/10/19 08/10/19 23:00 00:00 02:00 Temperature 99.2 F Pulse Rate 86 87 83 Respiratory 19 17 19 Rate Blood Pressure 122/65 142/73 122/99 O2 Sat by Pulse Oximetry (%) 08/10/19 08/10/19 08/10/19 04:00 06:00 08:00 Temperature 99 F Pulse Rate 89 84 86 Respiratory 22 H 19 19 Rate Blood Pressure 131/89 142/72 150/80 O2 Sat by Pulse Oximetry (%) 08/10/19 08/10/19 08/10/19 09:00 10:00 10:18 Temperature 97.4 F L 97.4 F L Pulse Rate 88 88 Respiratory 19 19 19 Rate Blood Pressure 137/75 O2 Sat by Pulse 96 96 Oximetry (%) 08/10/19 08/10/19 08/10/19 12:00 14:00 16:00 Temperature 98.3 F Pulse Rate 86 88 92 H Respiratory 19 19 16 Rate Blood Pressure 128/74 137/75 155/69 O2 Sat by Pulse Oximetry (%) 08/10/19 18:00 Temperature 98 F Pulse Rate 98 H Respiratory 16 Rate Blood Pressure 129/77 O2 Sat by Pulse Oximetry (%) Laboratory Results - last 24 hr 08/09/19 08/10/19 08/10/19 00:32 00:01 06:15 WBC 9.2 8.6 RBC 2.97 L 2.96 L Hgb 9.1 L 9.2 L Hct 26.1 L D 25.9 L MCV 88.1 87.4 MCH 30.8 30.9 MCHC 34.9 35.3 RDW 13.9 14.1 Plt Count 192 198 MPV 7.5 7.6 Absolute Neuts (auto) 6.4 6.3 Neutrophils % 69.6 72.9 Lymphocytes % 18.9 D 14.4 D Monocytes % 9.2 10.2 Eosinophils % 1.9 2.3 Basophils % 0.4 0.2 Nucleated RBC % 0 0 Sodium Potassium Chloride Carbon Dioxide Anion Gap BUN Creatinine Est GFR (CKD-EPI)AfAm Est GFR (CKD-EPI)NonAf Random Glucose Calcium Phosphorus Magnesium Total Bilirubin AST ALT Alkaline Phosphatase Total Protein Albumin Blood Type B POSITIVE Antibody Screen Negative Crossmatch See Detail 08/10/19 06:15 WBC RBC Hgb Hct MCV MCH MCHC RDW Plt Count MPV Absolute Neuts (auto) Neutrophils % Lymphocytes % Monocytes % Eosinophils % Basophils % Nucleated RBC % Sodium 144 Potassium 3.0 L Chloride 112 H Carbon Dioxide 25 Anion Gap 7 L BUN 4.9 L Creatinine 0.5 L Est GFR (CKD-EPI)AfAm 100.86 Est GFR (CKD-EPI)NonAf 87.02 Random Glucose 75 Calcium 7.9 L Phosphorus 3.0 Magnesium 1.8 Total Bilirubin 0.7 AST 24 ALT 17 Alkaline Phosphatase 48 Total Protein 5.1 L Albumin 2.6 L Blood Type Antibody Screen Crossmatch Current Medications Generic Name Dose Route Start Last Admin Trade Name Freq PRN Reason Stop Dose Admin Acetaminophen 1,000 mg 08/08/19 21:24 Ofirmev Injection - IVPB Q6H PRN MODERATE PAIN Chlorhexidine Gluconate 1 applic 08/08/19 22:00 08/09/19 21:44 Hibiclens For Decolonization - TP 1 applic HS FELICE Administration Dextrose/Sodium Chloride 1,000 mls @ 75 mls/hr 08/08/19 19:42 08/09/19 21:22 D5-Ns - IV Not Given ASDIR FELICE Lidocaine 2 patch 08/09/19 10:00 08/10/19 09:11 Lidoderm Patch - TP 2 patch DAILY [facility]ELICE Administration Miscellaneous 1 each 08/08/19 22:00 08/09/19 21:45 Lidoderm Patch Removal MC 1 each DAILY@2200 [facility]ELICE Administration Miscellaneous 1 each 08/08/19 22:00 08/09/19 21:45 Lidoderm Patch Removal MC 1 each DAILY@2200 [facility] Administration Mupirocin 1 applic 08/08/19 22:00 08/10/19 09:11 Bactroban Ointment (For Decolonization) - NS 08/13/19 21:59 1 applic BID FELICE Administration Pantoprazole Sodium 40 mg 08/09/19 10:00 08/10/19 09:11 Protonix Iv IVPUSH 40 mg DAILY [facility]ELICE Administration A/P: 89 F h/o diverticulosis, HTN, admitted for hematochezia, BRBPR and in stool, s/ p coiling and embolization of mesenteric vessels. being monitored in ICU. BRBPR with passage of clots s/p coiling and mesenteric embolization by IR likely 2/2 diverticular bleed, H/H now stable, will advance diet to clears and observe. 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 PPI, Tylenol PRn for pain, avoid AC , SCD/OLEG for now Hypokalemia needs aggressive repletion IV infiltrated both arms, will need more reliable IV access, assess for EJ placement HTN hold BP meds IVF DVT ppx: OLEG/SCD FEN: IVF/daily chem/cbc/NPO ICU monitoring Visit type - Emergency Visit Emergency Visit: Yes ED Registration Date: 08/05/19 Care time: The patient presented to the Emergency Department on the above date and was hospitalized for further evaluation of their emergent condition. - New Patient This patient is new to me today: No - Critical Care Critical Care patient: Yes Total Critical Care Time (in minutes): 35 Critical Care Statement: The care of this patient involved high complexity decision making to prevent further life threatening deterioration of the patient 's condition and/or to evaluate & treat vital organ system(s) failure or risk of failure. - Discharge Referral Referred to [facility] Med P.C.: No
[2019-08-10 19:44] LABS: HEMATOCRIT 30.6 % (32.4-45.2); HEMOGLOBIN 10.3 GM/dL (10.7-15.3); MCH 30.2 pg (25.7-33.7); MCHC 33.7 g/dl (32.0-36.0); MEAN CELL VOLUME 89.6 fl (80-96); MEAN PLT VOLUME 7.7 fl (7.5-11.1); PLATELET COUNT 233 K/MM3 (134-434); RBC 3.41 M/mm3 (3.60-5.2); RDW 14.2 % (11.6-15.6); WHITE BLOOD COUNT 11.8 K/mm3 (4.0-10.0)
[2019-08-10] MEDS: DEXTROSE 5%-NORMAL SALINE 1,000 ML IV SCH (20:36)
[2019-08-10] MEDS: CHLORHEXIDINE GLUCONATE 4% CLEANSER FOR DECOLONIZATION TP SCH (21:13)
[2019-08-10] MEDS: LIDOCAINE PATCH REMOVAL MC SCH ×2 (21:13)
[2019-08-11 06:40] LABS: BASO % 0.1 % (0-2.0); EOS % 2.6 % (0-4.5); HEMATOCRIT 26.5 % (32.4-45.2); HEMOGLOBIN 9.2 GM/dL (10.7-15.3); LYMPH % 12.8 % (8-40); MCH 30.5 pg (25.7-33.7); MCHC 34.7 g/dl (32.0-36.0); MEAN CELL VOLUME 87.9 fl (80-96); MEAN PLT VOLUME 7.6 fl (7.5-11.1); MONO % 9.3 % (3.8-10.2); NEUT % 75.2 % (42.8-82.8); PLATELET COUNT 217 K/MM3 (134-434); RBC 3.02 M/mm3 (3.60-5.2); RDW 14.2 % (11.6-15.6); WHITE BLOOD COUNT 8.3 K/mm3 (4.0-10.0)
[2019-08-11 07:26] LABS: ALBUMIN 2.6 g/dl (3.4-5.0); BILIRUBIN,TOTAL 0.7 mg/dL (0.2-1); CALCIUM 7.8 mg/dL (8.5-10.1); CREATININE 0.6 mg/dL (0.55-1.3); MAGNESIUM 1.7 mg/dL (1.8-2.4); PHOSPHOROUS 3.4 mg/dL (2.5-4.9); POTASSIUM 3.8 mmol/L (3.5-5.1); TOT PROT 5.4 g/dl (6.4-8.2)
[2019-08-11] MEDS ORDERED: MAGNESIUM SULF 50% (8.12 MEQ/2 ML-1 GM VIAL) IVPB ONE ×2 (07:54→08:30)
--- NOTE | 2019-08-11 09:00 | PN ---
Progress Note (short form) - Note Progress Note: SURGERY 89yo F h/o lower GI bleed s/p angio and embolizaton by Dr. Lindsey on 08/08, pt seen and examined in ICU. Pt states that she is feeling well. Pt denies abd, n /v, fever, chills. Pt states that she has not had a bloody BM in a couple days. Pt denies fever, chills, n/v. Pt denies dizziness or weakness. Last Vital Signs Temp Pulse Resp BP Pulse Ox 98.4 F 101 H 24 H 139/85 96 08/11/19 04:00 08/11/19 08:00 08/11/19 08:00 08/11/19 08:00 08/10/19 19:29 CBC, BMP 08/11/19 06:00 08/11/19 05:37 PE: Gen: A&O X3 Resp: breathing comfortably Abd: soft, nontender, nondistended Problem List - Problems (1) BRBPR (bright red blood per rectum) Assessment/Plan: Plan -pt appears to be doing well, will continue conservative treatment, but will stay on board incase of need for emergent surgical intervention. -trend h/h, small dip in Hgb 10->9 -medical management per ICU/medicine Pt discussed with Dr. Ortiz who agrees with plan Code(s): K62.5 - HEMORRHAGE OF ANUS AND RECTUM
[2019-08-11] MEDS: LIDOCAINE 5% TOPICAL PATCH TP SCH (10:17)
[2019-08-11] MEDS: PANTOPRAZOLE SODIUM 40 MG VIAL IVPUSH SCH (10:18)
[2019-08-11] MEDS: MUPIROCIN 2% TOPICAL OINTMENT FOR DECOLONIZATION NS SCH (10:18)
--- NOTE | 2019-08-11 11:24 | PN ---
Progress Note, Physician Chief Complaint: Seen sitting in chair. No further episodes of rectal bleeding. Tolerating clear diet. Appreciative of care. History of Present Illness: This is an 89 year-old female with a PMH significant for HTN, diverticuosis, and diverticular bleed. Transfered from [facility] for further managament of rectal bleeding.S/P embolization/angio. - Current Medication List Current Medications: Active Medications Acetaminophen (Ofirmev Injection -) 1,000 mg IVPB Q6H PRN PRN Reason: MODERATE PAIN Chlorhexidine Gluconate (Hibiclens For Decolonization -) 1 applic TP HS [facility] Last Admin: 08/10/19 21:13 Dose: 1 applic Dextrose/Sodium Chloride (D5-Ns -) 1,000 mls @ 75 mls/hr IV ASDIR [facility] Last Admin: 08/10/19 20:36 Dose: Not Given Lidocaine (Lidoderm Patch -) 2 patch TP DAILY [facility] Last Admin: 08/11/19 10:17 Dose: 2 patch Miscellaneous (Lidoderm Patch Removal) 1 each MC DAILY@2200 [facility] Last Admin: 08/10/19 21:13 Dose: 1 each Miscellaneous (Lidoderm Patch Removal) 1 each MC DAILY@2200 [facility] Last Admin: 08/10/19 21:13 Dose: 1 each Mupirocin (Bactroban Ointment (For Decolonization) -) 1 applic NS BID [facility] Stop: 08/13/19 21:59 Last Admin: 08/11/19 10:18 Dose: 1 applic Pantoprazole Sodium (Protonix Iv) 40 mg IVPUSH DAILY [facility] Last Admin: 08/11/19 10:18 Dose: 40 mg - Objective Vital Signs: Vital Signs Temperature 98.4 F 08/11/19 04:00 Pulse Rate 101 H 08/11/19 08:00 Respiratory Rate 24 H 08/11/19 08:00 Blood Pressure 139/85 08/11/19 08:00 O2 Sat by Pulse Oximetry (%) 96 08/10/19 19:29 Additional Findings/Remarks: Constitutional: Yes: Well Nourished, No Distress, Calm Eyes: Yes: WNL, Conjunctiva Clear HENT: Yes: WNL, Atraumatic, Normocephalic Neck: Yes: WNL, Supple, Trachea Midline Cardiovascular: Yes: WNL, Regular Rate and Rhythm Respiratory: Yes: WNL, Regular, CTA Bilaterally Gastrointestinal: Yes: WNL, Normal Bowel Sounds ...Rectal Exam: Yes: Guaiac Positive Genitourinary: Yes: WNL Breast(s): Yes: WNL Musculoskeletal: Yes: WNL Extremities: Yes: WNL Edema: Yes Edema: LLE: 1+, RLE: 1+ Peripheral Pulses WNL: Yes Peripheral Pulses: Left Radial: 2+, Right Radial: 2+, Left Doralis Pedis: 2+, Right Dorsalis Pedis: 2+, Left Femoral: 2+, Right Femoral: 2+ Integumentary: Yes: WNL Neurological: Yes: WNL, Alert, Oriented ...Motor Strength: WNL Psychiatric: Yes: WNL Labs: CBC, BMP 08/11/19 06:00 08/11/19 05:37 INR, PTT INR 1.12 (0.83-1.09) H 08/07/19 05:15 Problem List - Problems (1) HTN (hypertension) Assessment/Plan: normotensive holding nifidipine will re-assess prior to DC Code(s): I10 - ESSENTIAL (PRIMARY) HYPERTENSION (2) Diverticulitis Assessment/Plan: 3 diverticular bleeds in the past seen by surgery / GI/VIR s/p angio/embolization after recurrent LGI bleeding from likely diverticular source (sigmoid/left colon) no bleeding/clots noted overnight Code(s): K57.92 - DVTRCLI OF INTEST, PART UNSP, W/O PERF OR ABSCESS W/O BLEED (3) Diverticulitis of intestine with bleeding Assessment/Plan: s/p angio/embolization after recurrent LGI bleeding Code(s): K57.93 - DVTRCLI OF INTEST, PART UNSP, W/O PERF OR ABSCESS W BLEEDING (4) Prophylactic measure Assessment/Plan: FEN Fluids: IVF @ 75cc/he. adequate PO intake Electrolytes: monitor & replete as needed Nutrition: tolerated clear diet, will advance to low Na, low fiber diet DVT scds no chemical AC given bleeidng Dispo Maintain as inpatient-can transfer to non monitored bed full code discharge planning Code(s): Z29.9 - ENCOUNTER FOR PROPHYLACTIC MEASURES, UNSPECIFIED (5) BRBPR (bright red blood per rectum) Assessment/Plan: no further episodes today normal BM this morning Code(s): K62.5 - HEMORRHAGE OF ANUS AND RECTUM Visit type - Emergency Visit Emergency Visit: Yes ED Registration Date: 08/05/19 Care time: The patient presented to the Emergency Department on the above date and was hospitalized for further evaluation of their emergent condition. - New Patient This patient is new to me today: No - Critical Care Critical Care patient: No - Discharge Referral Referred to [facility] Med P.C.: No
--- NOTE | 2019-08-11 11:36 | PN ---
Progress Note (short form) - Note Progress Note: Patient s/p angio/embolization after recurrent LGI bleeding from likely diverticular source (sigmoid/left colon). No further BRB or clots OR and denites any N/V/abdominal pain or cramps. VSS Abdomen soft +BS nontender no mass Hct 26.5% (slight drop from yesterday) normal lytes No gross signs of GI bleeding although the mild drop in Hct of note Agree with advancing diet and monitoring CBC No need for colonoscopy at this time or further GI intervention if stable Can followup as outpatient if stable and tolerating diet (would avoid high fiber for 2-3 weeks) Please recall if I can be of assistance.
--- NOTE | 2019-08-11 12:35 | PN ---
Teaching Attending Note Name of Resident: Kat Gasca ATTENDING PHYSICIAN STATEMENT I saw and evaluated the patient. I reviewed the resident's note and discussed the case with the resident. I agree with the resident's findings and plan as documented. SUBJECTIVE: Pt seen and examined in the ICU. Scant blood with bowel movements. No abdominal pain. No fevers or chills. OBJECTIVE: Vital Signs Period Temp Pulse Resp BP Sys/Rolon Pulse Ox Last 24 Hr 97.9 F-98.4 F 71-101 16-24 108-155/62-89 96-96 Gen: NAD at rest Heart: RRR Lung: decreased breath sounds at the bases Abd: soft, nontender Ext: no edema CBC, BMP 08/11/19 06:00 08/11/19 05:37 Active Medications Acetaminophen (Ofirmev Injection -) 1,000 mg IVPB Q6H PRN PRN Reason: MODERATE PAIN Chlorhexidine Gluconate (Hibiclens For Decolonization -) 1 applic TP HS [facility] Last Admin: 08/10/19 21:13 Dose: 1 applic Lidocaine (Lidoderm Patch -) 2 patch TP DAILY [facility] Last Admin: 08/11/19 10:17 Dose: 2 patch Miscellaneous (Lidoderm Patch Removal) 1 each MC DAILY@2200 [facility] Last Admin: 08/10/19 21:13 Dose: 1 each Miscellaneous (Lidoderm Patch Removal) 1 each MC DAILY@2200 [facility] Last Admin: 08/10/19 21:13 Dose: 1 each Mupirocin (Bactroban Ointment (For Decolonization) -) 1 applic NS BID [facility] Stop: 08/13/19 21:59 Last Admin: 08/11/19 10:18 Dose: 1 applic Pantoprazole Sodium (Protonix Iv) 40 mg IVPUSH DAILY [facility] Last Admin: 08/11/19 10:18 Dose: 40 mg ASSESSMENT AND PLAN: GI Bleed s/p IR coil embolization Diverticulosis Acute Blood Loss Anemia HTN - monitor H/H - transfuse as needed - protonix - PO as tolerated - DVT prophylaxis - can monitor on floor
[2019-08-11 13:07] LABS: HEMATOCRIT 28.8 % (32.4-45.2); HEMOGLOBIN 9.9 GM/dL (10.7-15.3); MCH 30.8 pg (25.7-33.7); MCHC 34.2 g/dl (32.0-36.0); MEAN CELL VOLUME 89.9 fl (80-96); MEAN PLT VOLUME 7.4 fl (7.5-11.1); PLATELET COUNT 234 K/MM3 (134-434); RDW 14.5 % (11.6-15.6); WHITE BLOOD COUNT 8.6 K/mm3 (4.0-10.0)
--- NOTE | 2019-08-11 15:36 | PN ---
Physical Exam: SUBJECTIVE: Patient seen and examined. No acute complaints overnight. 2 non bloody BM overnight. OBJECTIVE: Vital Signs Period Temp Pulse Resp BP Sys/Rolon Pulse Ox Last 24 Hr 97.9 F-98.4 F 71-104 16-24 108-155/58-89 96-96 GENERAL: The patient is awake, alert, and fully oriented, in no acute distress. HEAD: Normal with no signs of trauma. EYES: PERRL, extraocular movements intact, sclera anicteric, conjunctiva clear. No ptosis. ENT: oropharynx clear without exudates, moist mucous membranes. NECK: Trachea midline, full range of motion, supple. LUNGS: Breath sounds equal, clear to auscultation bilaterally, no wheezes, no crackles, no accessory muscle use. HEART: Regular rate and rhythm, S1, S2 without murmur, rub or gallop. ABDOMEN: Soft, nontender, nondistended, normoactive bowel sounds, no guarding, no rebound, no hepatosplenomegaly, no masses. EXTREMITIES: 2+ pulses, warm, well-perfused, no edema. PSYCH: Normal mood, normal affect. SKIN: Warm, dry, normal turgor, no rashes or lesions noted Laboratory Results - last 24 hr 08/05/19 08/10/19 08/11/19 18:40 18:38 05:37 WBC 11.8 H RBC 3.41 L Hgb 10.3 L Hct 30.6 L D MCV 89.6 MCH 30.2 MCHC 33.7 RDW 14.2 Plt Count 233 MPV 7.7 Absolute Neuts (auto) Neutrophils % Lymphocytes % Monocytes % Eosinophils % Basophils % Nucleated RBC % Sodium 147 H Potassium 3.8 Chloride 114 H Carbon Dioxide 27 Anion Gap 6 L BUN 3.0 L Creatinine 0.6 Est GFR (CKD-EPI)AfAm 94.99 Est GFR (CKD-EPI)NonAf 81.95 Random Glucose 94 Calcium 7.8 L Phosphorus 3.4 Magnesium 1.7 L Total Bilirubin 0.7 AST 22 ALT 18 Alkaline Phosphatase 50 Total Protein 5.4 L Albumin 2.6 L Blood Type B POSITIVE Antibody Screen Negative Crossmatch See Detail 08/11/19 08/11/19 06:00 12:48 WBC 8.3 8.6 RBC 3.02 L 3.20 L Hgb 9.2 L 9.9 L Hct 26.5 L 28.8 L MCV 87.9 89.9 MCH 30.5 30.8 MCHC 34.7 34.2 RDW 14.2 14.5 Plt Count 217 234 MPV 7.6 7.4 L Absolute Neuts (auto) 6.2 Neutrophils % 75.2 Lymphocytes % 12.8 Monocytes % 9.3 Eosinophils % 2.6 Basophils % 0.1 Nucleated RBC % 0 Sodium Potassium Chloride Carbon Dioxide Anion Gap BUN Creatinine Est GFR (CKD-EPI)AfAm Est GFR (CKD-EPI)NonAf Random Glucose Calcium Phosphorus Magnesium Total Bilirubin AST ALT Alkaline Phosphatase Total Protein Albumin Blood Type Antibody Screen Crossmatch Active Medications Generic Name Dose Route Start Last Admin Trade Name Freq PRN Reason Stop Dose Admin Acetaminophen 1,000 mg 08/08/19 21:24 Ofirmev Injection - IVPB Q6H PRN MODERATE PAIN Chlorhexidine Gluconate 1 applic 08/08/19 22:00 08/10/19 21:13 Hibiclens For Decolonization - TP 1 applic HS FELICE Administration Lidocaine 2 patch 08/09/19 10:00 08/11/19 10:17 Lidoderm Patch - TP 2 patch DAILY [facility]ELICE Administration Miscellaneous 1 each 08/08/19 22:00 08/10/19 21:13 Lidoderm Patch Removal MC 1 each DAILY@2200 [facility]EL[facility] Administration Miscellaneous 1 each 08/08/19 22:00 08/10/19 21:13 Lidoderm Patch Removal MC 1 each DAILY@2200 [facility]EL[facility] Administration Mupirocin 1 applic 08/08/19 22:00 08/11/19 10:18 Bactroban Ointment (For Decolonization) - NS 08/13/19 21:59 1 applic BID FELICE Administration Pantoprazole Sodium 40 mg 08/09/19 10:00 08/11/19 10:18 Protonix Iv IVPUSH 40 mg DAILY [facility]ELICE Administration ASSESSMENT/PLAN: 89 y.o. F PMH HTN, diverticular bleeds in the past who presented for BRBPR x 2, found to have acute diverticular bleed at the junction of distal descending colon and proximal sigmoid colon. Neuro: -AAOx3 -no acute issues CV: -Hx HTN, holding home HCTZ -monitor BP closely Pulm: -saturating well on room air -no acute issues continue to monitor Heme/onc: -hgb stable but slightly dropped to 9.2. repeat showed 9.9 -continue to monitor daily cbc -monitor for bleeding, patient denies today -maintain Hgb >7 transfuse prn GI: -POD #3 s/p mesenteric embolization & coiling of acute diverticular hemorrhage -passing flatus -patient denies further episodes of bleeding -diet advanced sodium controlled with low fiber -Per GI, advancing diet and monitoring CBC No need for colonoscopy at this time or further GI intervention if stable FENLTD: -no standing fluid. encourage oral intake -trend lytes replete prn -peripheral IVs PPX: -holding chemical ac in setting of GI bleed -protonix 40mg IV daily Dispo: pending transfer to [facility] surge Visit type - Emergency Visit Emergency Visit: Yes ED Registration Date: 08/05/19 Care time: The patient presented to the Emergency Department on the above date and was hospitalized for further evaluation of their emergent condition. - New Patient This patient is new to me today: No - Critical Care Critical Care patient: Yes Total Critical Care Time (in minutes): 36 Critical Care Statement: The care of this patient involved high complexity decision making to prevent further life threatening deterioration of the patient 's condition and/or to evaluate & treat vital organ system(s) failure or risk of failure. ATTENDING PHYSICIAN STATEMENT I saw and evaluated the patient. I reviewed the resident's note and discussed the case with the resident. I agree with the resident's findings and plan as documented. SUBJECTIVE: OBJECTIVE: ASSESSMENT AND PLAN:
[2019-08-11 16:33] LABS: BASO % 0.2 % (0-2.0); HEMATOCRIT 28.5 % (32.4-45.2); HEMOGLOBIN 9.8 GM/dL (10.7-15.3); LYMPH % 11.7 % (8-40); MCH 30.8 pg (25.7-33.7); MCHC 34.4 g/dl (32.0-36.0); MEAN CELL VOLUME 89.3 fl (80-96); MEAN PLT VOLUME 7.6 fl (7.5-11.1); NEUT % 77.1 % (42.8-82.8); PLATELET COUNT 246 K/MM3 (134-434); RDW 14.2 % (11.6-15.6); WHITE BLOOD COUNT 9.1 K/mm3 (4.0-10.0)
[2019-08-11] MEDS ORDERED: ACETAMINOPHEN 1000 MG/100 ML VIAL (NON FORMULARY) IVPB PRN (20:30)
[2019-08-11] MEDS ORDERED: LIDOCAINE PATCH REMOVAL MC SCH ×3 (22:00)
[2019-08-12 07:32] LABS: BASO % 0.5 % (0-2.0); EOS % 2.5 % (0-4.5); HEMATOCRIT 28.8 % (32.4-45.2); LYMPH % 16.7 % (8-40); MCH 31.1 pg (25.7-33.7); MCHC 34.8 g/dl (32.0-36.0); MEAN CELL VOLUME 89.3 fl (80-96); MONO % 8.9 % (3.8-10.2); NEUT % 71.4 % (42.8-82.8); PLATELET COUNT 235 K/MM3 (134-434); RBC 3.22 M/mm3 (3.60-5.2); RDW 14.6 % (11.6-15.6); WHITE BLOOD COUNT 8.9 K/mm3 (4.0-10.0)
[2019-08-12 08:07] LABS: BILIRUBIN,TOTAL 0.4 mg/dL (0.2-1); BLOOD UREA NITROGEN 6.9 mg/dL (7-18); CALCIUM 8.4 mg/dL (8.5-10.1); CREATININE 0.6 mg/dL (0.55-1.3); MAGNESIUM 2.1 mg/dL (1.8-2.4); TOT PROT 6.1 g/dl (6.4-8.2)
[2019-08-12] MEDS ORDERED: PANTOPRAZOLE SODIUM 40 MG VIAL IVPUSH SCH (10:00)
[2019-08-12] MEDS ORDERED: LIDOCAINE 5% TOPICAL PATCH TP SCH (10:00)
[2019-08-12] MEDS ORDERED: NIFEdipine E.R 60 MG TABLET PO SCH (10:45)
[2019-08-12] MEDS ORDERED: HYDROCHLOROTHIAZIDE 25 MG TABLET (FP) PO SCH (10:45)
--- NOTE | 2019-08-12 12:44 | DS ---
Physical Exam: SUBJECTIVE: Patient seen and examined Seen sitting in chair. No further episodes of rectal bleeding. Tolerating diet. OBJECTIVE: This is an 89 year-old female with a PMH significant for HTN, diverticuosis, and diverticular bleed. Transfered from [facility] for further management of rectal bleeding. She is s/p embolization/angio on 08/08/2019 after recurrent LGI bleeding from likely diverticular source (sigmoid/left colon). Since procedure , no further bleeding/clots noted. Hmg/hct stable. Vital Signs Period Temp Pulse Resp BP Sys/Rolon Pulse Ox Last 24 Hr 97.8 F-99.1 F 85-103 18-22 97-156/71-86 94-98 PHYSICAL EXAM GENERAL: The patient is awake, alert, and fully oriented, in no acute distress. HEAD: Normal with no signs of trauma. EYES: PERRL, extraocular movements intact, sclera anicteric, conjunctiva clear. ENT: Ears normal, nares patent, oropharynx clear without exudates, moist mucous membranes. NECK: Trachea midline, full range of motion, supple. LUNGS: Breath sounds equal, clear to auscultation bilaterally, no wheezes, no crackles, no accessory muscle use. HEART: Regular rate and rhythm, S1, S2 without murmur, rub or gallop. ABDOMEN: Soft, nontender, nondistended, normoactive bowel sounds, no guarding, no rebound, no hepatosplenomegaly, no masses. EXTREMITIES: 2+ pulses, warm, well-perfused, no edema. NEUROLOGICAL: Cranial nerves II through XII grossly intact. Normal speech, gait not observed. PSYCH: Normal mood, normal affect. SKIN: Warm, dry, normal turgor, no rashes or lesions noted. LABS Laboratory Results - last 24 hr 08/05/19 08/09/19 08/11/19 18:40 00:32 12:48 WBC 8.6 RBC 3.20 L Hgb 9.9 L Hct 28.8 L MCV 89.9 MCH 30.8 MCHC 34.2 RDW 14.5 Plt Count 234 MPV 7.4 L Absolute Neuts (auto) Neutrophils % Lymphocytes % Monocytes % Eosinophils % Basophils % Nucleated RBC % Sodium Potassium Chloride Carbon Dioxide Anion Gap BUN Creatinine Est GFR (CKD-EPI)AfAm Est GFR (CKD-EPI)NonAf Random Glucose Calcium Magnesium Total Bilirubin AST ALT Alkaline Phosphatase Total Protein Albumin Blood Type B POSITIVE B POSITIVE Antibody Screen Negative Negative Crossmatch See Detail See Detail 08/11/19 08/12/19 08/12/19 16:05 06:45 06:45 WBC 9.1 8.9 RBC 3.20 L 3.22 L Hgb 9.8 L 10.0 L Hct 28.5 L 28.8 L MCV 89.3 89.3 MCH 30.8 31.1 MCHC 34.4 34.8 RDW 14.2 14.6 Plt Count 246 235 MPV 7.6 8.0 Absolute Neuts (auto) 7.0 6.3 Neutrophils % 77.1 71.4 Lymphocytes % 11.7 16.7 D Monocytes % 9.0 8.9 Eosinophils % 2.0 2.5 Basophils % 0.2 0.5 Nucleated RBC % 0 0 Sodium 142 Potassium 4.0 Chloride 110 H Carbon Dioxide 24 Anion Gap 8 BUN 6.9 L Creatinine 0.6 Est GFR (CKD-EPI)AfAm 94.99 Est GFR (CKD-EPI)NonAf 81.95 Random Glucose 87 Calcium 8.4 L Magnesium 2.1 Total Bilirubin 0.4 AST 27 ALT 20 Alkaline Phosphatase 68 Total Protein 6.1 L Albumin 3.0 L Blood Type Antibody Screen Crossmatch HOSPITAL COURSE: Date of Admission:08/05/19 Date of Discharge: 08/12/19 Minutes to complete discharge: 45 Discharge Summary Problems reviewed: Yes Reason For Visit: BRIGHT RED BLOOD PER RECTUM Current Active Problems Admitted to intensive care unit (Acute) BRBPR (bright red blood per rectum) (Acute) Diverticulitis (Acute) Diverticulitis of intestine with bleeding (Acute) HTN (hypertension) (Acute) Prophylactic measure (Acute) Condition: Stable - Instructions Diet, Activity, Other Instructions: Mrs Deras: You were admitted to [facility] for bleeding via your rectum. You had a procedure called an angio/embolization and the bleeding has stopped. We will be sending you home today and recommend that you follow up with a GI specialist for further workup as you may need a colonosocopy. Please avoid any aspirin, aleve, motrin or medications in the NSAID class. If you have pain take Tylenol. Please follow up with your primary care doctor for a post hospital appointment within 3-5 days. It is important that you have repeat blood work to make sure that your levels remain stable. Please continue a low fiber/low residue diet and follow up with the GI specialist. What is a low fiber/low residue diet? Examples are: white bread, without nuts or seeds white canchola, plain white pasta and crackers cream of wheat well cooked vegetables without seeds or skin beets string beans lettuce cooked red meats fish poultry Thank you for allowing us to care for you. Referrals: Joe Richards MD [Staff Physician] - Beatriz Firedman [Primary Care Provider] - Disposition: HOME - Home Medications Comprehensive Discharge Medication List: Ambulatory Orders Kranthi/D3/Mag11/Zinc/Asphalt Spreader Operator/Tyrese/Bor [Caltrate 600+D Plus Tablet] 1 tab PO DAILY 08/05 Gluc Lopez/Chondro Lopez A/Vit C/Mn [Glucosamine-Chondroitin Caps] 1 each PO DAILY Hydrochlorothiazide [Hctz -] 25 mg PO DAILY 08/05/19 Multivit with Calcium,Iron,Min [One Daily Women's] 1 tab PO DAILY 08/05/19 Nifedipine [Nifedipine ER] 60 mg PO HS 08/05/19 Pantoprazole Sodium [Protonix] 40 mg PO DAILY #60 tablet. 08/12/19 Problem List - Problems (1) BRBPR (bright red blood per rectum) Assessment/Plan: resolved Code(s): K62.5 - HEMORRHAGE OF ANUS AND RECTUM (2) HTN (hypertension) Assessment/Plan: stable Code(s): I10 - ESSENTIAL (PRIMARY) HYPERTENSION (3) Prophylactic measure Assessment/Plan: discharge home Code(s): Z29.9 - ENCOUNTER FOR PROPHYLACTIC MEASURES, UNSPECIFIED This patient is new to me today: Yes Date on this admission: 08/16/19 Emergency Visit: Yes ED Registration Date: 08/05/19 Care time: The patient presented to the Emergency Department on the above date and was hospitalized for further evaluation of their emergent condition. Critical Care patient: No - Discharge Referral Referred to [facility] No
[2019-08-12 14:23] VITALS: BP 109/57; PULSE 106; TEMP 97.9
--- NOTE | 2019-08-14 22:58 | PDOC ---
Documentation entered by Gabby Kuo SCRIBE, acting as scribe for Sly Ramos MD. Sly Ramos MD: This documentation has been prepared by the scribe, Gabby Kuo SCRIBE, under my direction and personally reviewed by me in its entirety. I confirm that the documentation accurately reflects all work, treatment, procedures, and medical decision making performed by me. *Physical Exam - Vital Signs Last Vital Signs Temp Pulse Resp BP Pulse Ox 98.6 F 81 16 133/80 97 08/05/19 17:31 08/05/19 19:27 08/05/19 19:27 08/05/19 19:27 08/05/19 19:27 - Physical Exam 08/05/19 20:04 *Previous chart was signed by physician prior to scribe imputing information* Patient is a 78 year old female with a significant past medical history of HTN and diverticulosis who presents to the ED with 2 episodes of rectal bleeding. Patient reports have 3 prior episodes of rectal bleeding and 1 diverticular bleed requiring transfusion in 2005. She reports having a regular bowel movement this morning without any pain. As per patient she reports having a colonoscopy in 2013 without any significant findings. She denies recent fevers, chills, headache or dizziness. She denies recent nausea, vomiting, diarrhea or constipation. She denies recent dysuria, frequency, urgency or hematuria. She denies recent chest pain or shortness of breath. Past surgical history: None reported. Social history: Nonsmoker. Denies EtOH use and recreational drug use. GI: PAST MEDICAL HISTORY: HTN and Diverticulosis. PAST SURGICAL HISTORY: no significant history FAMILY HISTORY: no pertinent history SOCIAL HISTORY: Pt lives with family and is employed. MEDICATIONS: reviewed ALLERGIES: As per nursing notes General: No fevers or chills, no weakness, no weight loss HEENT: No change in vision. No sore throat,. No ear pain CardioVascular: No chest pain or shortness of breath Respiratory:No cough, or wheezing. Gastrointestinal:+rectal bleeding. No nausea, vomiting, diarrhea or constipation Genitourinary: No dysuria, hematuria, or frequency Musculoskeletal: No joint or muscle pain or swelling Neurologic: No headache, vertigo, dizziness or loss of consciousness Psychiatric: nor depression Skin: No rashes or easy bruising Endocrine: no increased thirst or abnormal weight change Allergic: no skin or latex allergy All other systems reviewed and normal General: Well-nourished well-developed individual, no acute distress HEENT: Throat: Normal, tonsils normal, no erythema or exudate Neck: Supple, no meningeal signs, no lymphadenopathy Eyes::Pupils equal reactive and round, extraocular motion intact Chest: Nontender to palpation Cardiac: S1-S2 normal, regular rate and rhythm, no murmurs rubs or gallops Respiratory: Lungs clear to auscultation bilateral Abdomen: Soft, nondistended, normal bowel sounds, nontender to palpation diffusely Extremities: Warm, dry, no cyanosis, clubbing, or edema Skin: No rashes Neuro: Alert and oriented x3, nonfocal exam, grossly intact, normal gait Psych: Normal mood and affect GI: +rectal bright red blood. ED Treatment Course - LABORATORY CBC & Chemistry Diagram: 08/12/19 06:45 08/12/19 06:45 - ADDITIONAL ORDERS Additional order review: Laboratory Results 08/05/19 08/05/19 18:40 18:40 PT with INR 12.9 INR 1.16 PTT (Actin FS) 26.6 08/05/19 18:40 RBC 4.29 MCV 88.3 MCHC 33.9 RDW 13.4 MPV 8.0 Neutrophils % 67.2 Lymphocytes % 20.0 Monocytes % 8.2 Eosinophils % 0.7 Basophils % 3.9 H - RADIOLOGY Radiology Studies Ordered: Category Date Time Status CHEST X-RAY PORTABLE* [RAD] Stat Radiology 08/05/19 19:31 Completed - Medications Given in the ED: ED Medications Discontinued Medications Generic Name Dose Route Start Last Admin Trade Name Freq PRN Reason Stop Dose Admin Acetaminophen 1,000 mg 08/08/19 19:37 08/08/19 21:17 Ofirmev Injection - IVPB 08/08/19 19:38 1,000 mg ONCE ONE Administration Chlorhexidine Gluconate 1 applic 08/06/19 22:00 08/06/19 22:08 Hibiclens For Decolonization - TP 1 applic HS FELICE Administration Chlorhexidine Gluconate 1 applic 08/08/19 22:00 08/10/19 21:13 Hibiclens For Decolonization - TP 1 applic HS FELICE Administration Hydrochlorothiazide 25 mg 08/12/19 10:45 08/12/19 10:57 Hctz - PO 25 mg DAILY FELICE Administration Dextrose/Sodium Chloride 1,000 mls @ 75 mls/hr 08/05/19 22:00 08/06/19 22:08 D5-Ns - IV 75 mls/hr ASDIR FELICE Administration Sodium Chloride 1,000 mls @ 1,000 mls/hr 08/06/19 15:23 08/06/19 15:30 Normal Saline - IV 08/06/19 16:22 1,000 mls/hr ASDIR STA Administration Sodium Chloride 1,000 mls @ 1,000 mls/hr 08/06/19 15:23 08/06/19 15:30 Normal Saline - IV 08/06/19 16:22 1,000 mls/hr ASDIR STA Administration Dextrose/Sodium Chloride 1,000 mls @ 75 mls/hr 08/07/19 02:50 08/08/19 09:43 D5-Ns - IV 75 mls/hr ASDIR FELICE Administration Dextrose/Sodium Chloride 1,000 mls @ 75 mls/hr 08/08/19 19:42 08/10/19 20:36 D5-Ns - IV Not Given ASDIR FELICE Potassium Chloride 10 meq in 100 mls @ 100 mls/hr 08/09/19 08:00 08/09/19 13: 04 Potassium Chloride 10 Meq Premix Ivpb - IVPB 08/09/19 10:59 100 mls/hr Q60M FELICE Administration Potassium Chloride 10 meq in 100 mls @ 100 mls/hr 08/10/19 09:30 08/10/19 13: 46 Potassium Chloride 10 Meq Premix Ivpb - IVPB 08/10/19 12:29 100 mls/hr Q60M FELICE Administration Lidocaine 2 patch 08/09/19 10:00 08/11/19 10:17 Lidoderm Patch - TP 2 patch DAILY FELICE Administration Lidocaine 2 patch 08/08/19 21:24 08/08/19 22:23 Lidoderm Patch - TP 08/08/19 21:25 2 patch ONCE ONE Administration Lidocaine 2 patch 08/12/19 10:00 08/12/19 11:00 Lidoderm Patch - TP 2 patch DAILY FELICE Administration Magnesium Sulfate 2 gm 08/06/19 16:34 08/06/19 16:45 Magnesium Sulfate IVPB 08/06/19 16:35 2 gm ONCE ONE Administration Magnesium Sulfate 1 gm 08/09/19 07:49 08/09/19 08:27 Magnesium Sulfate IVPB 08/09/19 07:50 1 gm ONCE ONE Administration Magnesium Sulfate 2 gm 08/09/19 18:21 08/09/19 21:22 Magnesium Sulfate IVPB 08/09/19 18:22 Not Given ONCE ONE Magnesium Sulfate 1 gm 08/11/19 08:30 08/11/19 08:37 Magnesium Sulfate IVPB 08/11/19 08:31 1 gm ONCE ONE Administration Miscellaneous 1 each 08/08/19 22:00 08/10/19 21:13 Lidoderm Patch Removal MC 1 each DAILY@2200 FELICE Administration Miscellaneous 1 each 08/08/19 22:00 08/10/19 21:13 Lidoderm Patch Removal MC 1 each DAILY@2200 FELICE Administration Miscellaneous 1 each 08/11/19 22:00 08/11/19 21:22 Lidoderm Patch Removal MC Not Given DAILY@2200 FELICE Miscellaneous 1 each 08/11/19 22:00 08/11/19 21:22 Lidoderm Patch Removal MC Not Given DAILY@2200 FELICE Mupirocin 1 applic 08/06/19 22:00 08/07/19 09:58 Bactroban Ointment (For Decolonization) - NS 08/11/19 21:59 1 applic BID FELICE Administration Mupirocin 1 applic 08/08/19 22:00 08/11/19 10:18 Bactroban Ointment (For Decolonization) - NS 08/13/19 21:59 1 applic BID FELICE Administration Nifedipine 60 mg 08/12/19 10:45 08/12/19 11:00 Procardia Xl - PO 60 mg DAILY@0800 FELICE Administration Pantoprazole Sodium 40 mg 08/06/19 10:00 08/06/19 10:00 Protonix Iv IVPUSH 40 mg DAILY FELICE Administration Pantoprazole Sodium 40 mg 08/07/19 10:00 08/08/19 09:43 Protonix Iv IVPUSH 40 mg DAILY FELICE Administration Pantoprazole Sodium 40 mg 08/09/19 10:00 08/11/19 10:18 Protonix Iv IVPUSH 40 mg DAILY FELICE Administration Pantoprazole Sodium 40 mg 08/12/19 10:00 08/12/19 10:57 Protonix Iv IVPUSH 40 mg DAILY FELICE Administration Polyethylene Glycol/Electrolytes 4,000 ml 08/07/19 17:15 08/07/19 17:13 Golytely Solution - PO 08/07/19 17:16 4,000 ml ONCE ONE Administration Polyethylene Glycol/Electrolytes 4,000 ml 08/08/19 19:42 08/09/19 03:35 Golytely Solution - PO 08/08/19 19:43 Not Given ONCE ONE Potassium Chloride 60 meq 08/06/19 16:33 08/06/19 17:11 K-Dur - PO 08/06/19 16:34 60 meq ONCE STA Administration Potassium Chloride 40 meq 08/09/19 11:57 08/09/19 16:40 K-Dur - PO 08/09/19 11:58 Not Given ONCE ONE Potassium Chloride 40 meq 08/09/19 18:20 08/09/19 21:22 K-Dur - PO 08/09/19 18:21 Not Given ONCE ONE Potassium Chloride 40 meq 08/10/19 09:11 08/10/19 11:33 K-Dur - PO 08/10/19 09:12 40 meq NOW ONE Administration Discharge - Discharge Information Problems reviewed: Yes Clinical Impression/Diagnosis: BRBPR (bright red blood per rectum) Condition: Stable Disposition: HOME - Follow up/Referral - Patient Discharge Instructions - Post Discharge Activity
== END 2019-08-12 16:12 | disposition home or self-care (01) | DRG 357 ==
LOC: FER 17:29 → FM/S 20:04 → JICU 08-06 18:22 → J6S 08-07 15:27 → JSAMEDAYSX 08-08 15:52 → JICU 08-08 19:29 → J8W 08-11 20:32
PROVIDERS: ADMIT Internal Medicine; ATTEND Nurse Practitioner Family
PROC: 04LB3DZ Occlusion of Inferior Mesenteric Artery with Intraluminal Device, Percutaneous Approach (ICD-10-PCS; principal; 2019-08-08)
PROC: 30233N1 Transfusion of Nonautologous Red Blood Cells into Peripheral Vein, Percutaneous Approach (ICD-10-PCS; 2019-08-08)
DX: K57.93 Diverticulitis of intestine, part unspecified, without perforation or abscess with bleeding (principal); D62 Acute posthemorrhagic anemia; I10 Essential (primary) hypertension; E87.6 Hypokalemia; E83.42 Hypomagnesemia; E66.9 Obesity, unspecified; Z68.34 Body mass index [BMI] 34.0-34.9, adult
CPT/HCPCS: 36415; 36430; 36511; 37244; 71045-TC-FY; 74174-TC; 80048; 80053; 83605; 83735; 84100; 85025; 85027; 85610; 85730; 86850; 86900; 86901; 86922; 93005; 94761; 97116-GP; 99283-25; C1760; C1769; C1887; C1894; J0131; J7030; P9038; P9058; Q9967